=== PATIENT | male | born 1980 | race Caucasian/White ===

== ENCOUNTER 2018-09-10 15:46 | Inpatient (IN) | payer MEDICAID ==
[~2018-09-10] VITALS: Ht 182.9 cm; Wt 59.5 kg
[2018-09-10] MEDS ORDERED: CEFTRIAXONE 1 GM/50 ML (PMX) 50 ML IVPB STA (17:13)
[2018-09-10] MEDS ORDERED: PIPER-TAZO 3.375 GM IV (PMX) 100 ML IVPB STA (17:13)
[2018-09-10] MEDS ORDERED: SOD CHLORIDE 0.9% 1,000 ML IV STA (17:21)
[2018-09-10] MEDS ORDERED: KETOROLAC 15 MG INJ IV STA (17:21)
[2018-09-10] MEDS ORDERED: OXYCODONE/ACETAMINOPHEN (5/325) TAB PO ONE (17:30)
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
[2018-09-10] MEDS ORDERED: SOD CHLORIDE 0.9% 500 ML IV ONE (18:00)
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
[2018-09-10] MEDS ORDERED: NACL 0.9% 3 ML SYG IV SCH (18:30)
[2018-09-10] MEDS ORDERED: OXYCODONE/ACETAMINOPHEN (5/325) TAB PO PRN ×2 (18:30)
[2018-09-10] MEDS ORDERED: VANCOMYCIN IV PER PHARMACY XX SCH (18:30)
[2018-09-10] MEDS ORDERED: ACETAMINOPHEN 325 MG TAB PO PRN (18:30)
[2018-09-10] MEDS ORDERED: ONDANSETRON 4 MG INJ IV PRN (18:30)
[2018-09-10] MEDS ORDERED: traMADol 50 MG TAB PO PRN (19:00)
[2018-09-10] MEDS: morphine 2 MG INJ IV PRN (19:26)
[2018-09-10] MEDS ORDERED: VANCOMYCIN HCL 1.25 GM in SOD CHLORIDE 0.9% 250 ML IVPB ONE (21:00)
[2018-09-10] MEDS: oxyCODONE 15 MG TAB PO PRN (21:15)
[2018-09-10] MEDS ORDERED: OXYC30TA PO (22:37)
[2018-09-10 22:42] VITALS: Ht 182.9 cm; Wt 59.5 kg
[2018-09-10] MEDS ORDERED: COLLAGENASE 5 GM (UD JAR) TOP ONE (23:18)
[2018-09-10] MEDS ORDERED: PENDING SANTYL ORDER FOR WOUND CARE XX PRN (23:30)
[2018-09-11] MEDS: SOD CHLORIDE 0.9% 1,000 ML IV SCH ×4 (00:12→21:04)
[2018-09-11] MEDS: HEPARIN 5,000 UNIT/1 ML VIAL SC SCH ×3 (00:15→21:00)
[2018-09-11] MEDS: morphine 2 MG INJ IV PRN ×4 (00:20→19:03)
[2018-09-11 02:00] VITALS: BP 109/61; PULSE 87; RESP 18
[2018-09-11] MEDS: oxyCODONE 15 MG TAB PO PRN ×4 (03:21→22:55)
[2018-09-11] MEDS: PIPER-TAZO 3.375 GM IV (PMX) 100 ML IVPB SCH ×3 (05:32→21:04)
[2018-09-11] MEDS: VANCOMYCIN 1 GM in 250 ML IVPB SCH ×3 (06:56→21:55)
[2018-09-11 08:57] VITALS: BP 91/53; PULSE 82; RESP 18
[2018-09-11] MEDS: POTASSIUM CHLORIDE 20 MEQ POWDER FOR ORAL SOLN PO ONE ×2 (13:00→13:13)
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
[2018-09-11 14:39] VITALS: BP 100/57; PULSE 75; RESP 19
[2018-09-11] MEDS ORDERED: POTASSIUM CHLORIDE (SR) 20 MEQ TAB PO STA (14:39)
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
[2018-09-11 19:58] VITALS: BP 110/58; PULSE 69; RESP 18
[2018-09-11] MEDS ORDERED: COLLAGENASE 5 GM (UD JAR) TOP ONE (20:12)
[2018-09-12 01:45] VITALS: BP 97/53; PULSE 75; RESP 18
[2018-09-12 01:49] VITALS: BP 103/53; PULSE 68; RESP 18
[2018-09-12] MEDS: morphine 2 MG INJ IV PRN ×4 (01:57→19:47)
[2018-09-12] MEDS: PIPER-TAZO 3.375 GM IV (PMX) 100 ML IVPB SCH ×3 (05:57→22:18)
[2018-09-12] MEDS: oxyCODONE 15 MG TAB PO PRN ×3 (05:58→23:36)
[2018-09-12] MEDS: VANCOMYCIN 1 GM in 250 ML IVPB SCH ×3 (07:01→20:15)
[2018-09-12 07:58] VITALS: BP 97/55; PULSE 70; RESP 16
[2018-09-12] MEDS: HEPARIN 5,000 UNIT/1 ML VIAL SC SCH (09:13)
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
--- NOTE | 2018-09-12 14:12 | CONS ---
Assessment/Plan Assessment/Plan Hospital Course (Demo Recall) No acute events. Patient is sleeping in no distress no fevers overnight. WBC 7 no shift no bands. BUN 6 creatinine 0.53. Antimicrobials: Blood culture growing gram-positive cocci in clusters 1 set, urine culture grew E. coli, left buttock wound culture growing strep diphtheroids and gram-negative rods Antimicrobials: Patient is on Vanco Zosyn Physical examination: Well-developed middle-aged -[place] man in no distress. Head atraumatic normocephalic chest rise symmetrical breath sounds clear heart: S1-S2 abdomen soft bowel sounds present extremities wasted without cyanosis Assessment: 1. Bacteremia, possibly secondary to chronic wound, rule out contaminant 2. Urinary tract infection 3. Paraplegia 4. Neurogenic bladder 5. Chronic wounds Plan: Remains stable continue present care and antibiotics, await for final cultures, monitor for urinary retention Consultation Date/Type/Reason Admit Date/Time Sep 10, 2018 at 18:10 Initial Consult Date 09/12/18 Type of Consult id Requesting Provider: ROXANA BOX Date/Time of Note DATE: 09/12/18 TIME: 14:12 Exam/Review of Systems Exam Vitals Vital Signs Date Temp Pulse Resp B/P (MAP) Pulse Ox O2 O2 Flow FiO2 Time Delivery Rate 09/12/18 98.5 70 16 97/55 (69) 96 07:58 09/10/18 Room Air 21:55 Intake and Output 09/11/18 09/11/18 09/12/18 1515:00 23:00 07:00 IntakeIntake Total 1560 ml 1140 ml 1000 ml OutputOutput Total 200 ml 200 ml BalanceBalance 1360 ml 940 ml 1000 ml Results Result Diagram: 09/12/1858 09/12/18 0958 Results 24hrs Laboratory Tests Test 09/11/18 19:58 09/12/18 09:58 Vancomycin Level Trough 13.9 White Blood Count 7.0 # Red Blood Count 3.21 L Hemoglobin 8.5 L Hematocrit 28.3 L Mean Corpuscular Volume 88.2 Mean Corpuscular Hemoglobin 26.5 L Mean Corpuscular Hemoglobin Concent 30.0 L Red Cell Distribution Width 13.9 Platelet Count 368 Mean Platelet Volume 9.5 Immature Granulocytes % 0.300 Neutrophils % 73.4 Lymphocytes % 16.3 Monocytes % 6.8 Eosinophils % 2.9 Basophils % 0.3 Nucleated Red Blood Cells % 0.0 Immature Granulocytes # 0.020 Neutrophils # 5.2 Lymphocytes # 1.1 Monocytes # 0.5 Eosinophils # 0.2 Basophils # 0.0 Nucleated Red Blood Cells # 0.0 Sodium Level 141 Potassium Level 3.9 Chloride Level 111 H Carbon Dioxide Level 26 Anion Gap 4 L Blood Urea Nitrogen 6 L Creatinine 0.53 L Est Glomerular Filtrat Rate mL/min > 60 Glucose Level 139 Calcium Level 8.6 Phosphorus Level 2.9 Magnesium Level 1.9 Medications Medication Current Medications Vancomycin HCl (Vanco Iv Per Pharmacy) VANCOMYCIN PER PHARMACY PER PROTOCOL XX ; Start 09/10/18 at 18:30 Piperacillin Sod/ Tazobactam Sod 100 ml @ 200 mls/hr Q8 IVPB Last administered on 09/12/18 13:31; Admin Dose 200 MLS/HR; Start 09/11/18 at 06:00 IV Flush (NS 3 ml) 3 ml PER PROTOCOL IV ; Start 09/10/18 at 18:30 Ondansetron HCl (Zofran Inj) 4 mg Q6H PRN IV NAUSEA/VOMITING; Start 09/10/18 at 18:30 Acetaminophen (Tylenol Tab) 650 mg Q6H PRN PO .PAIN 1-3 OR TEMP; Start 09/10/18 at 18:30 Morphine Sulfate (morphine) 2 mg Q4H PRN IV .SEVERE PAIN 7-10 Last administered on 09/12/18 07:38; Admin Dose 2 MG; Start 09/10/18 at 18:30 Heparin Sodium (Porcine) (Heparin (5000 Units/1ml)) 5,000 unit Q12 SC Last administered on 09/12/18 09:13; Admin Dose 5,000 UNIT; Start 09/10/18 at 21:00; Status Hold Oxycodone HCl (Roxicodone) 30 mg Q6H PRN PO PAIN LEVEL 7-10 Last administered on 09/12/18 05:58; Admin Dose 30 MG; Start 09/10/18 at 19:00 Tramadol HCl (Ultram) 50 mg Q6H PRN PO MODERATE PAIN LEVEL 4-6; Start 09/10/18 at 19:00 Vancomycin HCl 250 ml @ 125 mls/hr Q8H IVPB Last administered on 09/12/18 13:31; Admin Dose 125 MLS/HR; Start 09/11/18 at 05:00 Miscellaneous Information (Pending [facility] Order For Wound Care) This patient carrion... PRN PRN XX WOUND CARE; Start 09/10/18 at 23:30 ROSENDO VELAZQUEZ NP Sep 12, 2018 14:12
[2018-09-12 14:42] VITALS: BP 105/59; PULSE 61; RESP 16
[2018-09-12 19:55] VITALS: BP 104/50; PULSE 61; RESP 17
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
[2018-09-13 02:13] VITALS: BP 112/58; PULSE 74; RESP 18
[2018-09-13] MEDS: morphine 2 MG INJ IV PRN ×4 (02:34→23:04)
[2018-09-13] MEDS: PIPER-TAZO 3.375 GM IV (PMX) 100 ML IVPB SCH ×3 (05:17→23:05)
[2018-09-13] MEDS: VANCOMYCIN 1 GM in 250 ML IVPB SCH ×3 (05:49→20:57)
[2018-09-13] MEDS: oxyCODONE 15 MG TAB PO PRN ×3 (05:51→21:09)
[2018-09-13 08:00] VITALS: BP 103/55; PULSE 68; RESP 18
[2018-09-13] MEDS: ASCORBIC ACID 500 MG TAB PO SCH ×2 (08:30→20:57)
[2018-09-13] MEDS: MULTIVITAMINS/MINERALS TAB PO SCH (08:30)
[2018-09-13] MEDS: ZINC SULFATE 220 MG CAP PO SCH (08:30)
[2018-09-13] MEDS ORDERED: BALSAM PERU/CASTOR OIL 60 GM TUBE TOP SCH ×2 (09:00→21:00)
[2018-09-13] MEDS ORDERED: COLLAGENASE 5 GM (UD JAR) TOP SCH (09:00)
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
[2018-09-13] MEDS: DOCUSATE SODIUM 100 MG CAP PO SCH ×2 (12:08→21:00)
[2018-09-13 14:00] VITALS: BP 101/58; PULSE 64; RESP 18
[2018-09-13] MEDS ORDERED: COLLAGENASE 5 GM (UD JAR) TOP ONE (15:30)
--- NOTE | 2018-09-13 16:23 | CONS ---
Assessment/Plan Assessment/Plan Hospital Course (Demo Recall) Alert feels good, denies pain, no fevers overnight. Antimicrobials: Blood culture growing gram-positive cocci in clusters 1 set, urine culture grew E. coli, left buttock wound culture growing strep diphtheroids and gram-negative rods Antimicrobials: Vanco Zosyn Physical examination: Well-developed middle-aged -[place] man in no distress. Head atraumatic normocephalic chest rise symmetrical breath sounds clear heart: S1-S2 abdomen soft bowel sounds present extremities wasted without cyanosis Assessment: 1. Bacteremia, possibly secondary to chronic wound, rule out contaminant 2. Urinary tract infection 3. Paraplegia 4. Neurogenic bladder 5. Chronic wounds, not infected Plan: Remains stable, continue present care and antibiotics, await for final cultures, bladder scan with straight cath prn, surgical recommendations noted, wounds are not infected Consultation Date/Type/Reason Admit Date/Time Sep 10, 2018 at 18:10 Initial Consult Date 09/12/18 Type of Consult id Requesting Provider: ROXANA BOX Date/Time of Note DATE: 09/13/18 TIME: 16:22 Exam/Review of Systems Exam Vitals Vital Signs Date Temp Pulse Resp B/P (MAP) Pulse Ox O2 O2 Flow FiO2 Time Delivery Rate 09/13/18 98.4 64 18 101/58 98 Room Air 14:00 (72) Intake and Output 09/12/18 09/12/18 09/13/18 1515:00 23:00 07:00 IntakeIntake Total 100 ml 1700 ml 620 ml OutputOutput Total 1200 ml 1175 ml BalanceBalance 100 ml 500 ml -555 ml Results Result Diagram: 09/13/18 0758 09/13/18 0758 Results 24hrs Laboratory Tests Test 09/13/18 07:58 White Blood Count 5.1 # Red Blood Count 3.19 L Hemoglobin 8.7 L Hematocrit 28.5 L Mean Corpuscular Volume 89.3 Mean Corpuscular Hemoglobin 27.3 L Mean Corpuscular Hemoglobin Concent 30.5 L Red Cell Distribution Width 14.1 Platelet Count 349 Mean Platelet Volume 9.5 Immature Granulocytes % 0.200 Neutrophils % 56.2 Lymphocytes % 30.7 Monocytes % 7.8 Eosinophils % 4.5 Basophils % 0.6 Nucleated Red Blood Cells % 0.0 Immature Granulocytes # 0.010 Neutrophils # 2.9 Lymphocytes # 1.6 Monocytes # 0.4 Eosinophils # 0.2 Basophils # 0.0 Nucleated Red Blood Cells # 0.0 Sodium Level 143 Potassium Level 4.1 Chloride Level 111 H Carbon Dioxide Level 28 Anion Gap 4 L Blood Urea Nitrogen 6 L Creatinine 0.51 L Est Glomerular Filtrat Rate mL/min > 60 Glucose Level 88 # Calcium Level 8.2 L Phosphorus Level 3.5 Magnesium Level 2.0 Medications Medication Current Medications Vancomycin HCl (Vanco Iv Per Pharmacy) VANCOMYCIN PER PHARMACY PER PROTOCOL XX ; Start 09/10/18 at 18:30 Piperacillin Sod/ Tazobactam Sod 100 ml @ 200 mls/hr Q8 IVPB Last administered on 09/13/18 14:47; Admin Dose 200 MLS/HR; Start 09/11/18 at 06:00 IV Flush (NS 3 ml) 3 ml PER PROTOCOL IV ; Start 09/10/18 at 18:30 Ondansetron HCl (Zofran Inj) 4 mg Q6H PRN IV NAUSEA/VOMITING; Start 09/10/18 at 18:30 Acetaminophen (Tylenol Tab) 650 mg Q6H PRN PO .PAIN 1-3 OR TEMP; Start 09/10/18 at 18:30 Morphine Sulfate (morphine) 2 mg Q4H PRN IV .SEVERE PAIN 7-10 Last administered on 09/13/18at 14:46; Admin Dose 2 MG; Start 09/10/18 at 18:30 Heparin Sodium (Porcine) (Heparin (5000 Units/1ml)) 5,000 unit Q12 SC Last administered on 09/12/18 09:13; Admin Dose 5,000 UNIT; Start 09/10/18 at 21:00; Status Hold Oxycodone HCl (Roxicodone) 30 mg Q6H PRN PO PAIN LEVEL 7-10 Last administered on 09/13/18 12:14; Admin Dose 30 MG; Start 09/10/18 at 19:00 Tramadol HCl (Ultram) 50 mg Q6H PRN PO MODERATE PAIN LEVEL 4-6; Start 09/10/18 at 19:00 Vancomycin HCl 250 ml @ 125 mls/hr Q8H IVPB Last administered on 09/13/18 12:09; Admin Dose 125 MLS/HR; Start 09/11/18 at 05:00 Miscellaneous Information (Pending Santyl Order For Wound Care) This patient carrion... PRN PRN XX WOUND CARE; Start 09/10/18 at 23:30 Multivitamins/ Minerals (Theragran-M) 1 tab DAILY PO Last administered on 09/13/18at 08:30; Admin Dose 1 TAB; Start 09/13/18 at 09:00 Ascorbic Acid (Vitamin C) 500 mg BID PO Last administered on 09/13/18at 08:30; Admin Dose 500 MG; Start 09/13/18 at 09:00; Stop 09/23/18 at 08:59 Zinc Sulfate (Zinc Sulfate) 220 mg DAILY PO Last administered on 09/13/18at 08:30; Admin Dose 220 MG; Start 09/13/18 at 09:00; Stop 09/23/18 at 08:59 Docusate Sodium (Colace) 100 mg BID PO Last administered on 09/13/18at 12:08; Admin Dose 100 MG; Start 09/13/18 at 10:00 Collagenase (Santyl) 1 applic DAILY TOP ; Start 09/13/18 at 16:00 ROSENDO VELAZQUEZ [employer] Sep 13, 2018 16:23
[2018-09-13] MEDS: COLLAGENASE 5 GM (UD JAR) TOP SCH (18:09)
[2018-09-13] MEDS: BALSAM PERU/CASTOR OIL 60 GM TUBE TOP SCH (18:09)
[2018-09-13 20:00] VITALS: BP 112/71; PULSE 69; RESP 18
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
[2018-09-14 02:00] VITALS: BP 99/57; PULSE 71; RESP 18
[2018-09-14] MEDS: oxyCODONE 15 MG TAB PO PRN ×3 (03:49→18:45)
[2018-09-14] MEDS: PIPER-TAZO 3.375 GM IV (PMX) 100 ML IVPB SCH ×3 (05:18→22:24)
[2018-09-14] MEDS: VANCOMYCIN 1 GM in 250 ML IVPB SCH ×2 (06:05→14:41)
[2018-09-14] MEDS: ZINC SULFATE 220 MG CAP PO SCH (12:31)
[2018-09-14] MEDS: MULTIVITAMINS/MINERALS TAB PO SCH (12:31)
[2018-09-14] MEDS: ASCORBIC ACID 500 MG TAB PO SCH ×2 (12:32→21:27)
[2018-09-14] MEDS: DOCUSATE SODIUM 100 MG CAP PO SCH ×2 (12:32→21:00)
[2018-09-14] MEDS: morphine 2 MG INJ IV PRN ×3 (14:02→23:51)
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
--- NOTE | 2018-09-14 14:56 | CONS ---
Assessment/Plan Assessment/Plan Hospital Course (Demo Recall) Alert feels good, no fevers overnight. Antimicrobials: Blood culture growing gram-positive cocci in clusters 1 set, urine culture grew E. coli, left buttock wound culture growing strep diphther oids and gram-negative rods Antimicrobials: Vanco Zosyn Physical examination: Well-developed middle-aged -[place] man in no distress. Head atraumatic normocephalic chest rise symmetrical breath sounds clear heart: S1-S2 abdomen soft bowel sounds present extremities wasted without cyanosis Assessment: 1. Bacteremia, consistent with contaminant 2. Urinary tract infection 3. Paraplegia 4. Neurogenic bladder 5. Chronic wounds, not infected Plan: Remains stable, okay to discharge home on oral antibiotics for 7 more days to complete treatment for UTI Consultation Date/Type/Reason Admit Date/Time Sep 10, 2018 at 18:10 Initial Consult Date 09/12/18 Type of Consult id Requesting Provider: ROXANA BOX Date/Time of Note DATE: 09/14/18 TIME: 14:54 Exam/Review of Systems Exam Vitals Vital Signs Date Temp Pulse Resp B/P (MAP) Pulse Ox O2 O2 Flow FiO2 Time Delivery Rate 09/14/18 98.7 71 18 99/57 (71) 97 02:00 09/13/18 Room Air 14:00 Intake and Output 09/13/18 09/13/18 09/14/18 1515:00 23:00 07:00 IntakeIntake Total 1380 ml 750 ml 200 ml OutputOutput Total 680 ml 250 ml 725 ml BalanceBalance 700 ml 500 ml -525 ml Results Result Diagram: 09/14/18 1227 09/14/18 1227 Results 24hrs Laboratory Tests Test 09/14/18 12:27 White Blood Count 6.1 Red Blood Count 3.32 L Hemoglobin 9.1 L Hematocrit 29.6 L Mean Corpuscular Volume 89.2 Mean Corpuscular Hemoglobin 27.4 L Mean Corpuscular Hemoglobin Concent 30.7 L Red Cell Distribution Width 14.0 Platelet Count 353 Mean Platelet Volume 9.7 Immature Granulocytes % 0.300 Neutrophils % 68.1 Lymphocytes % 19.1 Monocytes % 7.4 Eosinophils % 4.6 Basophils % 0.5 Nucleated Red Blood Cells % 0.0 Immature Granulocytes # 0.020 Neutrophils # 4.2 Lymphocytes # 1.2 Monocytes # 0.5 Eosinophils # 0.3 Basophils # 0.0 Nucleated Red Blood Cells # 0.0 Sodium Level 142 Potassium Level 4.2 Chloride Level 110 Carbon Dioxide Level 25 Anion Gap 7 Blood Urea Nitrogen 8 Creatinine 0.53 L Est Glomerular Filtrat Rate mL/min > 60 Glucose Level 145 # Calcium Level 8.9 Phosphorus Level 3.2 Magnesium Level 2.0 Vancomycin Level Trough 19.4 Medications Medication Current Medications Vancomycin HCl (Vanco Iv Per Pharmacy) VANCOMYCIN PER PHARMACY PER PROTOCOL XX ; Start 09/10/18 at 18:30 Piperacillin Sod/ Tazobactam Sod 100 ml @ 200 mls/hr Q8 IVPB Last administered on 09/14/18at 13:57; Admin Dose 200 MLS/HR; Start 09/11/18 at 06:00 IV Flush (NS 3 ml) 3 ml PER PROTOCOL IV ; Start 09/10/18 at 18:30 Ondansetron HCl (Zofran Inj) 4 mg Q6H PRN IV NAUSEA/VOMITING; Start 09/10/18 at 18:30 Acetaminophen (Tylenol Tab) 650 mg Q6H PRN PO .PAIN 1-3 OR TEMP; Start 09/10/18 at 18:30 Morphine Sulfate (morphine) 2 mg Q4H PRN IV .SEVERE PAIN 7-10 Last administered on 09/14/18at 14:02; Admin Dose 2 MG; Start 09/10/18 at 18:30 Heparin Sodium (Porcine) (Heparin (5000 Units/1ml)) 5,000 unit Q12 SC Last administered on 09/12/18at 09:13; Admin Dose 5,000 UNIT; Start 09/10/18 at 21:00; Status Hold Oxycodone HCl (Roxicodone) 30 mg Q6H PRN PO PAIN LEVEL 7-10 Last administered on 09/14/18at 12:38; Admin Dose 30 MG; Start 09/10/18 at 19:00 Tramadol HCl (Ultram) 50 mg Q6H PRN PO MODERATE PAIN LEVEL 4-6; Start 09/10/18 at 19:00 Vancomycin HCl 250 ml @ 125 mls/hr Q8H IVPB Last administered on 09/14/18at 14:41; Admin Dose 125 MLS/HR; Start 09/11/18 at 05:00; Stop 09/14/18 at 18:00 Miscellaneous Information (Pending Santyl Order For Wound Care) This patient carrion... PRN PRN XX WOUND CARE; Start 09/10/18 at 23:30 Multivitamins/ Minerals (Theragran-M) 1 tab DAILY PO Last administered on 09/14/18 12:31; Admin Dose 1 TAB; Start 09/13/18 at 09:00 Ascorbic Acid (Vitamin C) 500 mg BID PO Last administered on 09/14/18 12:32; Admin Dose 500 MG; Start 09/13/18 at 09:00; Stop 09/23/18 at 08:59 Zinc Sulfate (Zinc Sulfate) 220 mg DAILY PO Last administered on 09/14/18 12:31; Admin Dose 220 MG; Start 09/13/18 at 09:00; Stop 09/23/18 at 08:59 Docusate Sodium (Colace) 100 mg BID PO Last administered on 09/13/18at 12:08; Admin Dose 100 MG; Start 09/13/18 at 10:00 Collagenase (Santyl) 1 applic DAILY TOP Last administered on 09/13/18at 18:09; Admin Dose 1 APPLIC; Start 09/13/18 at 16:00 Vancomycin HCl 250 ml @ 125 mls/hr Q12H IVPB ; Start 09/15/18 at 02:00 ROSENDO VELAZQUEZ NP Sep 14, 2018 14:56
[2018-09-14] MEDS: BALSAM PERU/CASTOR OIL 60 GM TUBE TOP SCH ×2 (15:31→21:30)
[2018-09-14] MEDS: COLLAGENASE 5 GM (UD JAR) TOP SCH (15:31)
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
[2018-09-14 20:00] VITALS: BP 120/60; PULSE 68; RESP 17
[2018-09-15] MEDS: oxyCODONE 15 MG TAB PO PRN ×4 (01:13→20:40)
[2018-09-15 02:00] VITALS: BP 107/59; PULSE 72; RESP 18
[2018-09-15] MEDS ORDERED: VANCOMYCIN 1 GM 250 ML IVPB SCH (02:00)
[2018-09-15] MEDS: morphine 2 MG INJ IV PRN ×4 (04:30→22:19)
[2018-09-15] MEDS: PIPER-TAZO 3.375 GM IV (PMX) 100 ML IVPB SCH (06:06)
[2018-09-15 07:55] VITALS: BP 110/66; PULSE 69; RESP 16
[2018-09-15] MEDS: DOCUSATE SODIUM 100 MG CAP PO SCH ×2 (08:40→21:00)
[2018-09-15] MEDS: ZINC SULFATE 220 MG CAP PO SCH (08:40)
[2018-09-15] MEDS: MULTIVITAMINS/MINERALS TAB PO SCH (08:40)
[2018-09-15] MEDS: ASCORBIC ACID 500 MG TAB PO SCH ×2 (08:40→20:39)
[2018-09-15] MEDS: BALSAM PERU/CASTOR OIL 60 GM TUBE TOP SCH ×2 (08:41→20:39)
[2018-09-15] MEDS: COLLAGENASE 5 GM (UD JAR) TOP SCH (08:41)
[2018-09-15] MEDS: LEVOFLOXACIN 500 MG TAB PO SCH (10:09)
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
[2018-09-15 14:00] VITALS: BP 117/61; PULSE 71; RESP 18
--- NOTE | 2018-09-15 14:43 | CONS ---
Assessment/Plan Assessment/Plan Hospital Course (Demo Recall) All noted, no acute events, no fevers Antimicrobials: Blood culture growing gram-positive cocci in clusters 1 set, urine culture grew E. coli, left buttock wound culture growing strep diphthero ids and gram-negative rods Antimicrobials: Levaquin Physical examination: Well-developed middle-aged -[place] man in no distress. Head atraumatic normocephalic chest rise symmetrical breath sounds clear heart: S1-S2 abdomen soft bowel sounds present extremities wasted without cyanosis Assessment: 1. Bacteremia, consistent with contaminant 2. Urinary tract infection 3. Paraplegia 4. Neurogenic bladder 5. 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 Plan: Remains stable, pending discharge on oral antibiotics for 5 more days to complete treatment for UTI Consultation Date/Type/Reason Admit Date/Time Sep 10, 2018 at 18:10 Initial Consult Date 09/12/18 Type of Consult id Requesting Provider: ROXANA BOX Date/Time of Note DATE: 09/15/18 TIME: 14:41 Exam/Review of Systems Exam Vitals Vital Signs Date Temp Pulse Resp B/P (MAP) Pulse Ox O2 O2 Flow FiO2 Time Delivery Rate 09/15/18 98.4 71 18 117/61 97 Room Air 14:00 (79) Intake and Output 09/14/18 09/14/18 09/15/18 1515:00 23:00 07:00 IntakeIntake Total 1550 ml 500 ml 650 ml OutputOutput Total 850 ml 500 ml 400 ml BalanceBalance 700 ml 0 ml 250 ml Results Result Diagram: 09/15/18 0850 09/15/18 0850 Results 24hrs Laboratory Tests Test 09/15/18 08:50 White Blood Count 8.3 # Red Blood Count 3.15 L Hemoglobin 8.8 L Hematocrit 28.3 L Mean Corpuscular Volume 89.8 Mean Corpuscular Hemoglobin 27.9 L Mean Corpuscular Hemoglobin Concent 31.1 L Red Cell Distribution Width 13.9 Platelet Count 369 Mean Platelet Volume 9.5 Immature Granulocytes % 0.200 Neutrophils % 53.6 Lymphocytes % 34.0 Monocytes % 7.1 Eosinophils % 4.6 Basophils % 0.5 Nucleated Red Blood Cells % 0.0 Immature Granulocytes # 0.020 Neutrophils # 4.5 Lymphocytes # 2.8 Monocytes # 0.6 Eosinophils # 0.4 Basophils # 0.0 Nucleated Red Blood Cells # 0.0 Sodium Level 143 Potassium Level 3.9 Chloride Level 104 Carbon Dioxide Level 33 H Anion Gap 6 Blood Urea Nitrogen 6 L Creatinine 0.58 L Est Glomerular Filtrat Rate mL/min > 60 Glucose Level 84 # Calcium Level 8.6 Phosphorus Level 3.8 Magnesium Level 2.1 Medications Medication Current Medications IV Flush (NS 3 ml) 3 ml PER PROTOCOL IV ; Start 09/10/18 at 18:30 Ondansetron HCl (Zofran Inj) 4 mg Q6H PRN IV NAUSEA/VOMITING; Start 09/10/18 at 18:30 Acetaminophen (Tylenol Tab) 650 mg Q6H PRN PO .PAIN 1-3 OR TEMP; Start 09/10/18 at 18:30 Morphine Sulfate (morphine) 2 mg Q4H PRN IV .SEVERE PAIN 7-10 Last administered on 09/15/18 10:10; Admin Dose 2 MG; Start 09/10/18 at 18:30 Heparin Sodium (Porcine) (Heparin (5000 Units/1ml)) 5,000 unit Q12 SC Last administered on 09/12/18 09:13; Admin Dose 5,000 UNIT; Start 09/10/18 at 21:00; Status Hold Oxycodone HCl (Roxicodone) 30 mg Q6H PRN PO PAIN LEVEL 7-10 Last administered on 09/15/18 08:41; Admin Dose 30 MG; Start 09/10/18 at 19:00 Tramadol HCl (Ultram) 50 mg Q6H PRN PO MODERATE PAIN LEVEL 4-6; Start 09/10/18 at 19:00 Miscellaneous Information (Pending Santyl Order For Wound Care) This patient carrion... PRN PRN XX WOUND CARE; Start 09/10/18 at 23:30 Multivitamins/ Minerals (Theragran-M) 1 tab DAILY PO Last administered on 09/15/18 08:40; Admin Dose 1 TAB; Start 09/13/18 at 09:00 Ascorbic Acid (Vitamin C) 500 mg BID PO Last administered on 09/15/18 08:40; Admin Dose 500 MG; Start 09/13/18 at 09:00; Stop 09/23/18 at 08:59 Zinc Sulfate (Zinc Sulfate) 220 mg DAILY PO Last administered on 09/15/18 08:40; Admin Dose 220 MG; Start 09/13/18 at 09:00; Stop 09/23/18 at 08:59 Docusate Sodium (Colace) 100 mg BID PO Last administered on 09/15/18at 08:40; Admin Dose 100 MG; Start 09/13/18 at 10:00 Collagenase (Santyl) 1 applic DAILY TOP Last administered on 09/15/18at 08:41; Admin Dose 1 APPLIC; Start 09/13/18 at 16:00 Levofloxacin (Levaquin) 500 mg DAILY@06 PO Last administered on 09/15/18at 10:09; Admin Dose 500 MG; Start 09/15/18 at 09:30 ROSENDO VELAZQUEZ NP Sep 15, 2018 14:43
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
[2018-09-15 19:53] VITALS: BP 122/77; PULSE 56; RESP 20
[2018-09-16] MEDS: morphine 2 MG INJ IV PRN ×4 (02:21→21:19)
[2018-09-16 02:25] VITALS: BP 110/58; PULSE 70; RESP 18
[2018-09-16] MEDS: LEVOFLOXACIN 500 MG TAB PO SCH (06:01)
[2018-09-16] MEDS: oxyCODONE 15 MG TAB PO PRN ×3 (07:02→23:02)
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
[2018-09-16] MEDS: DOCUSATE SODIUM 100 MG CAP PO SCH ×4 (13:56→21:00)
[2018-09-16] MEDS: MULTIVITAMINS/MINERALS TAB PO SCH ×2 (13:57→14:54)
[2018-09-16] MEDS: ZINC SULFATE 220 MG CAP PO SCH ×2 (13:57→14:54)
[2018-09-16] MEDS: ASCORBIC ACID 500 MG TAB PO SCH ×3 (13:57→21:19)
[2018-09-16] MEDS: BALSAM PERU/CASTOR OIL 60 GM TUBE TOP SCH ×3 (14:49→21:25)
[2018-09-16] MEDS: COLLAGENASE 5 GM (UD JAR) TOP SCH ×2 (14:49→14:55)
[2018-09-16 21:26] VITALS: BP 122/63; PULSE 62; RESP 18
[2018-09-17] MEDS: morphine 2 MG INJ IV PRN ×5 (01:13→21:15)
[2018-09-17 02:00] VITALS: BP 120/60; PULSE 55; RESP 18
[2018-09-17] MEDS: LEVOFLOXACIN 500 MG TAB PO SCH (05:31)
[2018-09-17] MEDS: oxyCODONE 15 MG TAB PO PRN ×3 (06:36→22:35)
[2018-09-17 08:17] VITALS: BP 132/67; PULSE 80; RESP 18
[2018-09-17] MEDS: BALSAM PERU/CASTOR OIL 60 GM TUBE TOP SCH ×2 (09:00→21:15)
[2018-09-17] MEDS: COLLAGENASE 5 GM (UD JAR) TOP SCH (09:00)
[2018-09-17] MEDS: ASCORBIC ACID 500 MG TAB PO SCH ×2 (09:21→21:15)
[2018-09-17] MEDS: ZINC SULFATE 220 MG CAP PO SCH (09:21)
[2018-09-17] MEDS: MULTIVITAMINS/MINERALS TAB PO SCH (09:21)
[2018-09-17] MEDS: DOCUSATE SODIUM 100 MG CAP PO SCH ×2 (09:21→21:15)
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
[2018-09-17 20:00] VITALS: BP 100/59; PULSE 57; RESP 19
[2018-09-18] MEDS: morphine 2 MG INJ IV PRN ×6 (01:14→23:51)
[2018-09-18 02:00] VITALS: BP 102/51; PULSE 52; RESP 19
[2018-09-18] MEDS: LEVOFLOXACIN 500 MG TAB PO SCH (06:08)
[2018-09-18 08:00] VITALS: BP 94/53; PULSE 62; RESP 18
[2018-09-18] MEDS: oxyCODONE 15 MG TAB PO PRN ×3 (08:09→20:50)
[2018-09-18] MEDS: ASCORBIC ACID 500 MG TAB PO SCH ×2 (08:11→20:50)
[2018-09-18] MEDS: ZINC SULFATE 220 MG CAP PO SCH (08:11)
[2018-09-18] MEDS: MULTIVITAMINS/MINERALS TAB PO SCH (08:11)
[2018-09-18] MEDS: COLLAGENASE 5 GM (UD JAR) TOP SCH (08:11)
[2018-09-18] MEDS: DOCUSATE SODIUM 100 MG CAP PO SCH ×2 (08:11→21:00)
[2018-09-18] MEDS: BALSAM PERU/CASTOR OIL 60 GM TUBE TOP SCH ×2 (08:13→21:01)
--- NOTE | 2018-09-18 13:54 | CONS ---
Assessment/Plan Assessment/Plan Hospital Course (Demo Recall) All noted, no acute events looks comfortable Antimicrobials: Blood culture growing gram-positive cocci in clusters 1 set, urine culture grew E. coli, left buttock wound culture growing strep di phtheroids and gram-negative rods Antimicrobials: Levaquin Physical examination: Well-developed middle-aged -[place] man in no distress. Head atraumatic normocephalic chest rise symmetrical breath sounds clear heart: S1-S2 abdomen soft bowel sounds present extremities wasted without cyanosis Assessment: 1. Bacteremia, consistent with contaminant 2. Urinary tract infection 3. Paraplegia 4. Neurogenic bladder 5. 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 Plan: Remains stable, pending discharge on oral antibiotics for 3 more days to complete treatment for UTI Consultation Date/Type/Reason Admit Date/Time Sep 10, 2018 at 18:10 Initial Consult Date 09/12/18 Type of Consult id Requesting Provider: ROXANA BOX Date/Time of Note DATE: 09/18/18 TIME: 13:53 Exam/Review of Systems Exam Vitals Vital Signs Date Temp Pulse Resp B/P (MAP) Pulse Ox O2 O2 Flow FiO2 Time Delivery Rate 09/18/18 97.8 62 18 94/53 (67) 98 Room Air 08:00 Intake and Output 09/17/18 09/17/18 09/18/18 1515:00 23:00 07:00 IntakeIntake Total 340 ml 860 ml 420 ml OutputOutput Total 750 ml 1050 ml BalanceBalance 340 ml 110 ml -630 ml Results Result Diagram: 09/17/18 0551 09/17/18 0551 Medications Medication Current Medications IV Flush (NS 3 ml) 3 ml PER PROTOCOL IV ; Start 09/10/18 at 18:30 Ondansetron HCl (Zofran Inj) 4 mg Q6H PRN IV NAUSEA/VOMITING; Start 09/10/18 at 18:30 Acetaminophen (Tylenol Tab) 650 mg Q6H PRN PO .PAIN 1-3 OR TEMP; Start 09/10/18 at 18:30 Morphine Sulfate (morphine) 2 mg Q4H PRN IV .SEVERE PAIN 7-10 Last administered on 09/18/18at 10:26; Admin Dose 2 MG; Start 09/10/18 at 18:30 Heparin Sodium (Porcine) (Heparin (5000 Units/1ml)) 5,000 unit Q12 SC Last administered on 09/12/18 09:13; Admin Dose 5,000 UNIT; Start 09/10/18 at 21:00; Status Hold Oxycodone HCl (Roxicodone) 30 mg Q6H PRN PO PAIN LEVEL 7-10 Last administered on 09/18/18 08:09; Admin Dose 30 MG; Start 09/10/18 at 19:00 Tramadol HCl (Ultram) 50 mg Q6H PRN PO MODERATE PAIN LEVEL 4-6; Start 09/10/18 at 19:00 Miscellaneous Information (Pending Santyl Order For Wound Care) This patient carrion... PRN PRN XX WOUND CARE; Start 09/10/18 at 23:30 Multivitamins/ Minerals (Theragran-M) 1 tab DAILY PO Last administered on 09/18/18 08:11; Admin Dose 1 TAB; Start 09/13/18 at 09:00 Ascorbic Acid (Vitamin C) 500 mg BID PO Last administered on 09/18/18 08:11; Admin Dose 500 MG; Start 09/13/18 at 09:00; Stop 09/23/18 at 08:59 Zinc Sulfate (Zinc Sulfate) 220 mg DAILY PO Last administered on 09/18/18 08:11; Admin Dose 220 MG; Start 09/13/18 at 09:00; Stop 09/23/18 at 08:59 Docusate Sodium (Colace) 100 mg BID PO Last administered on 09/17/18 21:15; Admin Dose 100 MG; Start 09/13/18 at 10:00 Collagenase (Santyl) 1 applic DAILY TOP Last administered on 09/18/18 08:11; Admin Dose 1 APPLIC; Start 09/13/18 at 16:00 Levofloxacin (Levaquin) 500 mg DAILY@06 PO Last administered on 09/18/18 06:08; Admin Dose 500 MG; Start 09/15/18 at 09:30 ROSENDO VELAZQUEZ NP Sep 18, 2018 13:54
[2018-09-18 14:20] VITALS: BP 124/64; PULSE 65; RESP 18
--- NOTE | 2018-09-18 15:47 | PN ---
Date/Time of Note Date/Time of Note DATE: 09/18/18 TIME: 15:42 Assessment/Plan VTE Prophylaxis Risk score (from Ns)>0 risk: 4 SCD applied (from Ns): Yes Pharmacological prophylaxis: NA/contraindicated Pharm contraindication: bleeding Lines/Catheters IV Catheter Type (from Nrsg): Saline Lock Urinary Cath still in place: No Assessment/Plan Assessment/Plan 1. UTI, resolving - ID on board and appreciate recommendations. Will need to continue on 3 more days of PO antibiotics - Urine culture showing E. coli 2. Hematuria, resolved 3. Bladder trabeculation - Urology consultation appreciated - urine cytology negative for malignancy 4. ?acute on Chronic vs chronic sacral pressure ulcer, history of osteomyelitis - has been present for 1 year - General surgery input appreciated and will continue local wound care - CM consulted to assist with arranging outpatient wound care 5. Chronic pain/neuropathy - will continue home Oxycodone 30mg q6h 6. Homelessness - consulted and plans to airbnb 7. Disposition - Will touch base with CM regarding wound care arrangements and if able to get patient supplies. If no acute issues and arrangements finalized, will d/c home tomorrow Result Diagram: 09/18/18 1418 09/18/18 1418 Results 24hrs Laboratory Tests Test 09/18/18 14:18 White Blood Count 6.6 # Red Blood Count 4.03 L Hemoglobin 10.8 L Hematocrit 36.1 L Mean Corpuscular Volume 89.6 Mean Corpuscular Hemoglobin 26.8 L Mean Corpuscular Hemoglobin Concent 29.9 L Red Cell Distribution Width 14.5 Platelet Count 466 H Mean Platelet Volume 9.5 Immature Granulocytes % 0.500 H Neutrophils % 49.4 Lymphocytes % 36.8 Monocytes % 7.3 Eosinophils % 5.2 Basophils % 0.8 Nucleated Red Blood Cells % 0.0 Immature Granulocytes # 0.030 Neutrophils # 3.2 Lymphocytes # 2.4 Monocytes # 0.5 Eosinophils # 0.3 Basophils # 0.1 Nucleated Red Blood Cells # 0.0 Sodium Level 142 Potassium Level 4.4 Chloride Level 103 Carbon Dioxide Level 31 Anion Gap 8 Blood Urea Nitrogen 15 Creatinine 0.66 Est Glomerular Filtrat Rate mL/min > 60 Glucose Level 88 Calcium Level 9.5 Phosphorus Level 4.2 Magnesium Level 2.1 Subjective 24 Hr Interval Summary Free Text/Dictation Patient denies any acute issues and still with pain but controlled. No acute overnight events. Exam/Review of Systems Exam Vitals Vital Signs Date Temp Pulse Resp B/P (MAP) Pulse Ox O2 O2 Flow FiO2 Time Delivery Rate 09/18/18 97.8 62 18 94/53 (67) 98 Room Air 08:00 Intake and Output 09/17/18 09/17/18 09/18/18 1515:00 23:00 07:00 IntakeIntake Total 340 ml 860 ml 420 ml OutputOutput Total 750 ml 1050 ml BalanceBalance 340 ml 110 ml -630 ml Exam General: Patient is laying in bed and answers questions appropriately Respiratory: Clear to auscultation bilaterally. no wheezing or rhonchi Cardiovascular: regular rate and rhythm, no obvious murmurs Gastrointestinal: soft, non-tender to palpation, bowel sounds heard. Neurological: Moves upper extremities spontaneously, lower extremity movement is somewhat limited, Skin: No new skin lesions sacral decubitus ulcers present, gluteal ulcers present Results Results 24hrs Laboratory Tests Test 09/18/18 14:18 White Blood Count 6.6 # Red Blood Count 4.03 L Hemoglobin 10.8 L Hematocrit 36.1 L Mean Corpuscular Volume 89.6 Mean Corpuscular Hemoglobin 26.8 L Mean Corpuscular Hemoglobin Concent 29.9 L Red Cell Distribution Width 14.5 Platelet Count 466 H Mean Platelet Volume 9.5 Immature Granulocytes % 0.500 H Neutrophils % 49.4 Lymphocytes % 36.8 Monocytes % 7.3 Eosinophils % 5.2 Basophils % 0.8 Nucleated Red Blood Cells % 0.0 Immature Granulocytes # 0.030 Neutrophils # 3.2 Lymphocytes # 2.4 Monocytes # 0.5 Eosinophils # 0.3 Basophils # 0.1 Nucleated Red Blood Cells # 0.0 Sodium Level 142 Potassium Level 4.4 Chloride Level 103 Carbon Dioxide Level 31 Anion Gap 8 Blood Urea Nitrogen 15 Creatinine 0.66 Est Glomerular Filtrat Rate mL/min > 60 Glucose Level 88 Calcium Level 9.5 Phosphorus Level 4.2 Magnesium Level 2.1 Medications Medication Current Medications IV Flush (NS 3 ml) 3 ml PER PROTOCOL IV ; Start 09/10/18 at 18:30 Ondansetron HCl (Zofran Inj) 4 mg Q6H PRN IV NAUSEA/VOMITING; Start 09/10/18 at 18:30 Acetaminophen (Tylenol Tab) 650 mg Q6H PRN PO .PAIN 1-3 OR TEMP; Start 09/10/18 at 18:30 Morphine Sulfate (morphine) 2 mg Q4H PRN IV .SEVERE PAIN 7-10 Last administered on 09/18/18 15:33; Admin Dose 2 MG; Start 09/10/18 at 18:30 Heparin Sodium (Porcine) (Heparin (5000 Units/1ml)) 5,000 unit Q12 SC Last administered on 09/12/18 09:13; Admin Dose 5,000 UNIT; Start 09/10/18 at 21:00; Status Hold Oxycodone HCl (Roxicodone) 30 mg Q6H PRN PO PAIN LEVEL 7-10 Last administered on 09/18/18 14:30; Admin Dose 30 MG; Start 09/10/18 at 19:00 Tramadol HCl (Ultram) 50 mg Q6H PRN PO MODERATE PAIN LEVEL 4-6; Start 09/10/18 at 19:00 Miscellaneous Information (Pending Santyl Order For Wound Care) This patient carrion... PRN PRN XX WOUND CARE; Start 09/10/18 at 23:30 Multivitamins/ Minerals (Theragran-M) 1 tab DAILY PO Last administered on 09/18/18 08:11; Admin Dose 1 TAB; Start 09/13/18 at 09:00 Ascorbic Acid (Vitamin C) 500 mg BID PO Last administered on 09/18/18 08:11; Admin Dose 500 MG; Start 09/13/18 at 09:00; Stop 09/23/18 at 08:59 Zinc Sulfate (Zinc Sulfate) 220 mg DAILY PO Last administered on 09/18/18 08:11; Admin Dose 220 MG; Start 09/13/18 at 09:00; Stop 09/23/18 at 08:59 Docusate Sodium (Colace) 100 mg BID PO Last administered on 09/17/18 21:15; Admin Dose 100 MG; Start 09/13/18 at 10:00 Collagenase (Santyl) 1 applic DAILY TOP Last administered on 09/18/18 08:11; Admin Dose 1 APPLIC; Start 09/13/18 at 16:00 Levofloxacin (Levaquin) 500 mg DAILY@06 PO Last administered on 09/18/18 06 :08; Admin Dose 500 MG; Start 09/15/18 at 09:30 EVAN HERNÁNDEZ MD Sep 18, 2018 15:47
[2018-09-18 20:25] VITALS: BP 131/72; PULSE 74; RESP 20
[2018-09-19 02:00] VITALS: BP 98/56; PULSE 59; RESP 19
[2018-09-19] MEDS: oxyCODONE 15 MG TAB PO PRN ×2 (03:07→09:14)
[2018-09-19] MEDS: LEVOFLOXACIN 500 MG TAB PO SCH (05:22)
[2018-09-19] MEDS: morphine 2 MG INJ IV PRN ×2 (05:23→10:46)
[2018-09-19] MEDS: DOCUSATE SODIUM 100 MG CAP PO SCH (09:00)
[2018-09-19] MEDS: MULTIVITAMINS/MINERALS TAB PO SCH (09:13)
[2018-09-19] MEDS: COLLAGENASE 5 GM (UD JAR) TOP SCH (09:13)
[2018-09-19] MEDS: ASCORBIC ACID 500 MG TAB PO SCH (09:13)
[2018-09-19] MEDS: ZINC SULFATE 220 MG CAP PO SCH (09:13)
[2018-09-19] MEDS: BALSAM PERU/CASTOR OIL 60 GM TUBE TOP SCH (09:14)
--- NOTE | 2018-09-19 11:41 | PN ---
Date/Time of Note Date/Time of Note DATE: 09/19/18 TIME: 11:39 Assessment/Plan VTE Prophylaxis Risk score (from Ns)>0 risk: 4 SCD applied (from Ns): Yes Pharmacological prophylaxis: NA/contraindicated Pharm contraindication: bleeding Lines/Catheters IV Catheter Type (from Nrs): Saline Lock Urinary Cath still in place: No Assessment/Plan Assessment/Plan 1. UTI, resolving - ID on board and appreciate recommendations. Will need to continue on 2 more days of PO antibiotics - Urine culture showing E. coli 2. Hematuria, resolved 3. Bladder trabeculation - Urology consultation appreciated - urine cytology negative for malignancy 4. ?acute on Chronic vs chronic sacral pressure ulcer, history of osteomyelitis - has been present for 1 year - General surgery input appreciated and will continue local wound care - CM consulted to assist with arranging outpatient wound care 5. Chronic pain/neuropathy - will continue home Oxycodone 30mg q6h 6. Homelessness - consulted and plans to air bnb 7. Disposition - Medically stable for discharge home Result Diagram: 09/18/18 1418 09/18/18 1418 Results 24hrs Laboratory Tests Test 09/18/18 14:18 White Blood Count 6.6 # Red Blood Count 4.03 L Hemoglobin 10.8 L Hematocrit 36.1 L Mean Corpuscular Volume 89.6 Mean Corpuscular Hemoglobin 26.8 L Mean Corpuscular Hemoglobin Concent 29.9 L Red Cell Distribution Width 14.5 Platelet Count 466 H Mean Platelet Volume 9.5 Immature Granulocytes % 0.500 H Neutrophils % 49.4 Lymphocytes % 36.8 Monocytes % 7.3 Eosinophils % 5.2 Basophils % 0.8 Nucleated Red Blood Cells % 0.0 Immature Granulocytes # 0.030 Neutrophils # 3.2 Lymphocytes # 2.4 Monocytes # 0.5 Eosinophils # 0.3 Basophils # 0.1 Nucleated Red Blood Cells # 0.0 Sodium Level 142 Potassium Level 4.4 Chloride Level 103 Carbon Dioxide Level 31 Anion Gap 8 Blood Urea Nitrogen 15 Creatinine 0.66 Est Glomerular Filtrat Rate mL/min > 60 Glucose Level 88 Calcium Level 9.5 Phosphorus Level 4.2 Magnesium Level 2.1 Subjective 24 Hr Interval Summary Free Text/Dictation Patient is doing well and ready to go home. No acute overnight events. Exam/Review of Systems Exam Vitals Vital Signs Date Temp Pulse Resp B/P (MAP) Pulse Ox O2 O2 Flow FiO2 Time Delivery Rate 09/19/18 98.5 59 19 98/56 (70) 98 02:00 09/18/18 Room Air 14:20 Intake and Output 09/18/18 09/18/18 09/19/18 1515:00 23:00 07:00 IntakeIntake Total 600 ml 700 ml OutputOutput Total 800 ml 800 ml BalanceBalance -200 ml -100 ml Exam General: Patient is laying in bed and answers questions appropriately Respiratory: Clear to auscultation bilaterally. no wheezing or rhonchi Cardiovascular: regular rate and rhythm, no obvious murmurs Gastrointestinal: soft, non-tender to palpation, bowel sounds heard. Neurological: Moves upper extremities spontaneously, lower extremity movement is somewhat limited, Skin: No new skin lesions sacral decubitus ulcers present, gluteal ulcers present Results Results 24hrs Laboratory Tests Test 09/18/18 14:18 White Blood Count 6.6 # Red Blood Count 4.03 L Hemoglobin 10.8 L Hematocrit 36.1 L Mean Corpuscular Volume 89.6 Mean Corpuscular Hemoglobin 26.8 L Mean Corpuscular Hemoglobin Concent 29.9 L Red Cell Distribution Width 14.5 Platelet Count 466 H Mean Platelet Volume 9.5 Immature Granulocytes % 0.500 H Neutrophils % 49.4 Lymphocytes % 36.8 Monocytes % 7.3 Eosinophils % 5.2 Basophils % 0.8 Nucleated Red Blood Cells % 0.0 Immature Granulocytes # 0.030 Neutrophils # 3.2 Lymphocytes # 2.4 Monocytes # 0.5 Eosinophils # 0.3 Basophils # 0.1 Nucleated Red Blood Cells # 0.0 Sodium Level 142 Potassium Level 4.4 Chloride Level 103 Carbon Dioxide Level 31 Anion Gap 8 Blood Urea Nitrogen 15 Creatinine 0.66 Est Glomerular Filtrat Rate mL/min > 60 Glucose Level 88 Calcium Level 9.5 Phosphorus Level 4.2 Magnesium Level 2.1 Medications Medication Current Medications IV Flush (NS 3 ml) 3 ml PER PROTOCOL IV ; Start 09/10/18 at 18:30 Ondansetron HCl (Zofran Inj) 4 mg Q6H PRN IV NAUSEA/VOMITING; Start 09/10/18 at 18:30 Acetaminophen (Tylenol Tab) 650 mg Q6H PRN PO .PAIN 1-3 OR TEMP; Start 09/10/18 at 18:30 Morphine Sulfate (morphine) 2 mg Q4H PRN IV .SEVERE PAIN 7-10 Last administered on 09/19/18 10:46; Admin Dose 2 MG; Start 09/10/18 at 18:30 Heparin Sodium (Porcine) (Heparin (5000 Units/1ml)) 5,000 unit Q12 SC Last administered on 09/12/18 09:13; Admin Dose 5,000 UNIT; Start 09/10/18 at 21:00; Status Hold Oxycodone HCl (Roxicodone) 30 mg Q6H PRN PO PAIN LEVEL 7-10 Last administered on 09/19/18 09:14; Admin Dose 30 MG; Start 09/10/18 at 19:00 Tramadol HCl (Ultram) 50 mg Q6H PRN PO MODERATE PAIN LEVEL 4-6; Start 09/10/18 at 19:00 Miscellaneous Information (Pending Santyl Order For Wound Care) This patient carrion... PRN PRN XX WOUND CARE; Start 09/10/18 at 23:30 Multivitamins/ Minerals (Theragran-M) 1 tab DAILY PO Last administered on 09/19/18 09:13; Admin Dose 1 TAB; Start 09/13/18 at 09:00 Ascorbic Acid (Vitamin C) 500 mg BID PO Last administered on 09/19/18 09:13; Admin Dose 500 MG; Start 09/13/18 at 09:00; Stop 09/23/18 at 08:59 Zinc Sulfate (Zinc Sulfate) 220 mg DAILY PO Last administered on 09/19/18 09:13; Admin Dose 220 MG; Start 09/13/18 at 09:00; Stop 09/23/18 at 08:59 Docusate Sodium (Colace) 100 mg BID PO Last administered on 09/17/18 21:15; Admin Dose 100 MG; Start 09/13/18 at 10:00 Collagenase (Santyl) 1 applic DAILY TOP Last administered on 09/19/18 09:13; Admin Dose 1 APPLIC; Start 09/13/18 at 16:00 Levofloxacin (Levaquin) 500 mg DAILY@06 PO Last administered on 09/19/18 05:22; Admin Dose 500 MG; Start 09/15/18 at 09:30 EVAN HERNÁNDEZ MD Sep 19, 2018 11:41
[2018-09-19] MEDS ORDERED: OXYC30TA PO (11:47)
[2018-09-19] MEDS ORDERED: ASC500 PO (11:47)
[2018-09-19] MEDS ORDERED: [UNRECOGNIZED DRUG - CODE] TP (11:47)
[2018-09-19] MEDS ORDERED: ZINC220C5 PO (11:47)
[2018-09-19] MEDS ORDERED: LEVO500T48 PO (11:47)
[2018-09-19] MEDS ORDERED: BALS60OI TOP (11:47)
[2018-09-19] MEDS ORDERED: MULT-843 PO (11:47)
[2018-09-19] MEDS ORDERED: SAN30GM TOP (11:47)
--- NOTE | 2018-09-19 11:52 | CONS ---
Assessment/Plan Assessment/Plan Hospital Course (Demo Recall) All noted, no acute events Antimicrobials: Blood culture growing gram-positive cocci in clusters 1 set, urine culture grew E. coli, left buttock wound culture growing strep diphtheroids and gram-negative rods Antimicrobials: Levaquin Physical examination: Well-developed middle-aged -[place] man in no distress. Head atraumatic normocephalic chest rise symmetrical breath sounds c lear heart: S1-S2 abdomen soft bowel sounds present extremities wasted without cyanosis Assessment: 1. Bacteremia, consistent with contaminant 2. Urinary tract infection 3. Paraplegia 4. Neurogenic bladder 5. 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 Plan: Remains stable, completing antibiotics for UTI Consultation Date/Type/Reason Admit Date/Time Sep 10, 2018 at 18:10 Initial Consult Date 09/12/18 Type of Consult id Requesting Provider: ROXANA BOX Date/Time of Note DATE: 09/19/18 TIME: 11:51 Exam/Review of Systems Exam Vitals Vital Signs Date Temp Pulse Resp B/P (MAP) Pulse Ox O2 O2 Flow FiO2 Time Delivery Rate 09/19/18 98.5 59 19 98/56 (70) 98 02:00 09/18/18 Room Air 14:20 Intake and Output 09/18/18 09/18/18 09/19/18 1515:00 23:00 07:00 IntakeIntake Total 600 ml 700 ml OutputOutput Total 800 ml 800 ml BalanceBalance -200 ml -100 ml Results Result Diagram: 09/18/18 1418 09/18/18 1418 Results 24hrs Laboratory Tests Test 09/18/18 14:18 White Blood Count 6.6 # Red Blood Count 4.03 L Hemoglobin 10.8 L Hematocrit 36.1 L Mean Corpuscular Volume 89.6 Mean Corpuscular Hemoglobin 26.8 L Mean Corpuscular Hemoglobin Concent 29.9 L Red Cell Distribution Width 14.5 Platelet Count 466 H Mean Platelet Volume 9.5 Immature Granulocytes % 0.500 H Neutrophils % 49.4 Lymphocytes % 36.8 Monocytes % 7.3 Eosinophils % 5.2 Basophils % 0.8 Nucleated Red Blood Cells % 0.0 Immature Granulocytes # 0.030 Neutrophils # 3.2 Lymphocytes # 2.4 Monocytes # 0.5 Eosinophils # 0.3 Basophils # 0.1 Nucleated Red Blood Cells # 0.0 Sodium Level 142 Potassium Level 4.4 Chloride Level 103 Carbon Dioxide Level 31 Anion Gap 8 Blood Urea Nitrogen 15 Creatinine 0.66 Est Glomerular Filtrat Rate mL/min > 60 Glucose Level 88 Calcium Level 9.5 Phosphorus Level 4.2 Magnesium Level 2.1 Medications Medication Current Medications IV Flush (NS 3 ml) 3 ml PER PROTOCOL IV ; Start 09/10/18 at 18:30 Ondansetron HCl (Zofran Inj) 4 mg Q6H PRN IV NAUSEA/VOMITING; Start 09/10/18 at 18:30 Acetaminophen (Tylenol Tab) 650 mg Q6H PRN PO .PAIN 1-3 OR TEMP; Start 09/10/18 at 18:30 Morphine Sulfate (morphine) 2 mg Q4H PRN IV .SEVERE PAIN 7-10 Last administered on 09/19/18 10:46; Admin Dose 2 MG; Start 09/10/18 at 18:30 Heparin Sodium (Porcine) (Heparin (5000 Units/1ml)) 5,000 unit Q12 SC Last administered on 09/12/18 09:13; Admin Dose 5,000 UNIT; Start 09/10/18 at 21:00; Status Hold Oxycodone HCl (Roxicodone) 30 mg Q6H PRN PO PAIN LEVEL 7-10 Last administered on 09/19/18 09:14; Admin Dose 30 MG; Start 09/10/18 at 19:00 Tramadol HCl (Ultram) 50 mg Q6H PRN PO MODERATE PAIN LEVEL 4-6; Start 09/10/18 at 19:00 [facility] This patient carrion... PRN PRN XX WOUND CARE; Start 09/10/18 at 23:30 Multivitamins/ Minerals (Theragran-M) 1 tab DAILY PO Last administered on 09/19/18 09:13; Admin Dose 1 TAB; Start 09/13/18 at 09:00 Ascorbic Acid (Vitamin C) 500 mg BID PO Last administered on 09/19/18 09:13; Admin Dose 500 MG; Start 09/13/18 at 09:00; Stop 09/23/18 at 08:59 Zinc Sulfate (Zinc Sulfate) 220 mg DAILY PO Last administered on 09/19/18 09:13; Admin Dose 220 MG; Start 09/13/18 at 09:00; Stop 09/23/18 at 08:59 Docusate Sodium (Colace) 100 mg BID PO Last administered on 09/17/18at 21:15; Admin Dose 100 MG; Start 09/13/18 at 10:00 Collagenase (Santyl) 1 applic DAILY TOP Last administered on 09/19/18at 09:13; Admin Dose 1 APPLIC; Start 09/13/18 at 16:00 Levofloxacin (Levaquin) 500 mg DAILY@06 PO Last administered on 09/19/18at 05:22; Admin Dose 500 MG; Start 09/15/18 at 09:30 ROSENDO VELAZQUEZ NP Sep 19, 2018 11:52
--- NOTE | 2018-09-19 11:53 | PDOCDIS ---
Discharge Instructions DIAGNOSIS Discharge Diagnosis 1. UTI, resolving 2. Hematuria, resolved 3. Bladder trabeculation 4. ?acute on Chronic vs chronic sacral pressure ulcer, history of osteomyelitis 5. Chronic pain/neuropathy CONDITION [id number] Patient Condition: [id number] Stable HOME CARE INSTRUCTIONS: [id number] Diet Instructions: [id number] Regular FOLLOW UP/APPOINTMENTS Follow-up Plan 1. Follow up with a primary care physician in 1-2 weeks. You [address] call Dr. Arturo Jimenez's office to make an appointment or go to [facility] for further treatment 2. Take Levaquin tomorrow to complete course of treatment for your urinary tract infection 3. Continue local wound care daily 4. Take Zinc and Vit C for 7 more days to help with wound healing, and continue multivitamins daily 5. If experiencing any concerning symptoms, please go to your nearest emergency department REFERRALS Other Referrals Arturo Jimenez MD Specialty: Internal Medicine Office Address [address] [place] [id number] Office [facility] [id number] [facility] [place] [address] EVAN HERNÁNDEZ MD Sep 19, 2018 11:53
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
== END 2018-09-19 12:50 | disposition home or self-care (01) | DRG 689 ==
LOC: FTE 15:46 → PP2 18:10
PROVIDERS: ADMIT Internal Medicine; ATTEND Internal Medicine
DX: N39.0 Urinary tract infection, site not specified (principal); L89.224 Pressure ulcer of left hip, stage 4; L89.214 Pressure ulcer of right hip, stage 4; G82.20 Paraplegia, unspecified; Z68.1 Body mass index [BMI] 19.9 or less, adult; R78.81 Bacteremia; E86.0 Dehydration; Z59.0 Homelessness; G62.9 Polyneuropathy, unspecified; D72.829 Elevated white blood cell count, unspecified; Z72.0 Tobacco use; L89.150 Pressure ulcer of sacral region, unstageable; L89.210 Pressure ulcer of right hip, unstageable; L89.610 Pressure ulcer of right heel, unstageable; L89.320 Pressure ulcer of left buttock, unstageable; B96.20 Unspecified Escherichia coli [E. coli] as the cause of diseases classified elsewhere; B96.4 Proteus (mirabilis) (morganii) as the cause of diseases classified elsewhere; B95.4 Other streptococcus as the cause of diseases classified elsewhere; B96.89 Other specified bacterial agents as the cause of diseases classified elsewhere; R31.9 Hematuria, unspecified; N32.89 Other specified disorders of bladder
CPT/HCPCS: 36415; 71045; 74018; 76775; 80048; 80053; 80202; 81001; 83690; 83735; 84100; 85025; 87070; 87081; 87086; 88104; 88305; 96365; 96375; 97161; 97166; J0696; J1644; J1885; J2270; J2543; J3370; J7030; J7040; J7050

== ENCOUNTER 2018-10-04 10:53 | Emergency (ER) | payer MEDICAID ==
[~2018-10-04] VITALS: Ht 182.9 cm; Wt 70.0 kg
[~2018-10-04 10:53] MED LIST: ASC500 PO; BALS60OI TOP; LEVO500T48 PO; MULT-843 PO; OXYC30TA PO; SAN30GM TOP; ZINC220C5 PO; [UNRECOGNIZED DRUG - CODE] TP
[2018-10-04 11:02] VITALS: BP 135/63; PULSE 86; RESP 16; Ht 182.9 cm; Wt 70.0 kg
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
== END 2018-10-04 12:50 | disposition home or self-care (01) ==
LOC: FTE 10:53
DX: G89.29 Other chronic pain (principal); F17.210 Nicotine dependence, cigarettes, uncomplicated
CPT/HCPCS: 99282

== ENCOUNTER 2019-02-07 20:00 | Inpatient (IN) | payer MEDICAID ==
[~2019-02-07] VITALS: Ht 182.9 cm; Wt 66.7 kg
[~2019-02-07 20:00] MED LIST changes: +OXYC30TA3 PO; +SODI473S5 TP
[2019-02-07] MEDS ORDERED: SODIUM CHLORIDE 0.9% 1L BAG IV* STA (20:43)
[2019-02-07] MEDS ORDERED: ONDANSETRON 4 MG INJ IV STA (20:43)
[2019-02-07] MEDS ORDERED: ACETAMINOPHEN 325 MG TAB PO STA (20:43)
[2019-02-07] MEDS ORDERED: KETOROLAC 15 MG INJ IV STA (20:43)
[2019-02-07] MEDS ORDERED: morphine 4 MG/ML VIAL IV STA (20:43)
[2019-02-07] MEDS ORDERED: CEFTRIAXONE 1 GM/50 ML (PMX) 50 ML IVPB STA (20:43)
[2019-02-07] MEDS ORDERED: ONDANSETRON 4 MG INJ IV PRN (23:00)
[2019-02-07] MEDS ORDERED: ACETAMINOPHEN 325 MG TAB PO PRN (23:00)
[2019-02-08] VITALS (31 sets, daily range): BP systolic 82–116; BP diastolic 52–84; PULSE 62–123; RESP 15–37
[2019-02-08] MEDS ORDERED: SOD CHLORIDE 0.9% 500 ML IV ONE
[2019-02-08] MEDS: SOD CHLORIDE 0.9% 1,000 ML IV SCH ×2 (00:01→12:30)
[2019-02-08] MEDS: PANTOPRAZOLE 40 MG INJ IV SCH (00:29)
[2019-02-08] MEDS ORDERED: SOD CHLORIDE 0.9% 1,000 ML IV ONE (00:30)
[2019-02-08] MEDS ORDERED: ONDANSETRON 4 MG INJ IV PRN (00:30)
[2019-02-08] MEDS ORDERED: NACL 0.9% 3 ML SYG IV SCH (00:30)
[2019-02-08] MEDS ORDERED: DOCUSATE SODIUM 100 MG CAP PO PRN (00:30)
[2019-02-08] MEDS ORDERED: BISACODYL (EC) 5 MG TAB PO PRN (00:30)
[2019-02-08] MEDS ORDERED: VANCOMYCIN IV PER PHARMACY XX SCH (01:00)
[2019-02-08] MEDS: MEROPENEM 1 GM/50ML(PMX) 50 ML IVPB SCH ×3 (01:27→20:10)
[2019-02-08] MEDS: ALBUMIN HUMAN 25% 100 ML IV SCH ×2 (02:26→03:23)
[2019-02-08] MEDS: NORepinephrine 8MG/250 ML (PMX 250 ML IV SCH (03:32)
[2019-02-08] MEDS: VANCOMYCIN 1 GM 250 ML IVPB SCH ×2 (04:36→14:01)
[2019-02-08] MEDS: ENOXAPARIN 40 MG/0.4 ML SYG SC SCH (09:36)
[2019-02-08] MEDS: morphine 2 MG INJ IV PRN (14:39)
[2019-02-08] MEDS: ACETAMINOPHEN 325 MG TAB PO PRN (19:41)
[2019-02-08] MEDS ORDERED: CEFTRIAXONE 1 GM/50 ML (PMX) 50 ML IVPB SCH (20:00)
[2019-02-08] MEDS: HYDROmorphONE 1 MG/ML SYG IV PRN (20:10)
[2019-02-08] MEDS ORDERED: AL HYDROX/MG HYDROX/SIMETH 30 ML CUP PO PRN (23:30)
[2019-02-09] VITALS (73 sets, daily range): BP systolic 80–111; BP diastolic 40–68; PULSE 72–115; RESP 16–38
[2019-02-09] MEDS: SOD CHLORIDE 0.9% 1,000 ML IV SCH ×2 (00:44→13:31)
[2019-02-09] MEDS: VANCOMYCIN 1 GM 250 ML IVPB SCH ×2 (02:09→13:37)
[2019-02-09] MEDS: PANTOPRAZOLE 40 MG INJ IV SCH (05:22)
[2019-02-09] MEDS: MEROPENEM 1 GM/50ML(PMX) 50 ML IVPB SCH ×2 (10:00→21:24)
[2019-02-09] MEDS: ENOXAPARIN 40 MG/0.4 ML SYG SC SCH (11:31)
[2019-02-09] MEDS: HYDROmorphONE 1 MG/ML SYG IV PRN ×2 (11:41→14:49)
[2019-02-09] MEDS ORDERED: POTASSIUM CHLORIDE (SR) 20 MEQ TAB PO STA (13:30)
[2019-02-09] MEDS: ACETAMINOPHEN 325 MG TAB PO PRN ×2 (14:49→21:28)
[2019-02-09] MEDS: FERROUS SULFATE (EC) 325 MG TAB PO SCH ×2 (14:49→22:42)
[2019-02-09] MEDS: DAKINS 0.0125%(1/40) 473 ML SOLUTION TP SCH (18:34)
[2019-02-09] MEDS: BALSAM PERU/CASTOR OIL 60 GM TUBE TOP SCH (18:34)
[2019-02-09] MEDS: NORepinephrine 8MG/250 ML (PMX 250 ML IV SCH (19:14)
[2019-02-09] MEDS ORDERED: PANTOPRAZOLE 40 MG INJ IV SCH (23:30)
[2019-02-10] VITALS (22 sets, daily range): BP systolic 85–126; BP diastolic 47–90; PULSE 64–123; RESP 14–32
[2019-02-10] MEDS: SOD CHLORIDE 0.9% 1,000 ML IV SCH ×2 (00:14→15:43)
[2019-02-10] MEDS: VANCOMYCIN 1 GM 250 ML IVPB SCH ×3 (02:07→18:26)
[2019-02-10] MEDS: morphine 2 MG INJ IV PRN ×3 (04:47→22:04)
[2019-02-10] MEDS: PANTOPRAZOLE 40 MG INJ IV SCH (05:26)
[2019-02-10] MEDS: ACETAMINOPHEN 325 MG TAB PO PRN ×2 (05:27→19:59)
[2019-02-10] MEDS ORDERED: POTASSIUM CHLORIDE (SR) 20 MEQ TAB PO STA (08:36)
[2019-02-10] MEDS: MEROPENEM 1 GM/50ML(PMX) 50 ML IVPB SCH ×2 (10:20→20:01)
[2019-02-10] MEDS: DAKINS 0.0125%(1/40) 473 ML SOLUTION TP SCH (10:23)
[2019-02-10] MEDS: BALSAM PERU/CASTOR OIL 60 GM TUBE TOP SCH (10:23)
[2019-02-10] MEDS: ENOXAPARIN 40 MG/0.4 ML SYG SC SCH (11:17)
[2019-02-10] MEDS: FERROUS SULFATE (EC) 325 MG TAB PO SCH ×2 (15:55→20:00)
[2019-02-10] MEDS: HYDROmorphONE 1 MG/ML SYG IV PRN ×3 (16:06→21:47)
[2019-02-11] VITALS (15 sets, daily range): BP systolic 87–132; BP diastolic 46–80; PULSE 70–102; RESP 14–28
[2019-02-11] MEDS: morphine 2 MG INJ IV PRN (00:27)
[2019-02-11] MEDS: VANCOMYCIN 1 GM 250 ML IVPB SCH ×2 (02:58→16:10)
[2019-02-11] MEDS: PANTOPRAZOLE (EC) 40 MG TAB PO SCH (06:00)
[2019-02-11] MEDS: MEROPENEM 1 GM/50ML(PMX) 50 ML IVPB SCH ×2 (08:45→20:28)
[2019-02-11] MEDS: ASCORBIC ACID 500 MG TAB PO SCH ×2 (08:46→20:28)
[2019-02-11] MEDS: SOD CHLORIDE 0.9% 1,000 ML IV SCH (08:46)
[2019-02-11] MEDS: FERROUS SULFATE (EC) 325 MG TAB PO SCH ×2 (08:46→20:28)
[2019-02-11] MEDS: DAKINS 0.0125%(1/40) 473 ML SOLUTION TP SCH (08:47)
[2019-02-11] MEDS: BALSAM PERU/CASTOR OIL 60 GM TUBE TOP SCH (08:48)
[2019-02-11] MEDS: ENOXAPARIN 40 MG/0.4 ML SYG SC SCH (09:25)
[2019-02-11] MEDS: METHADONE 5 MG TAB PO SCH ×2 (10:20→18:16)
[2019-02-11] MEDS: ACETAMINOPHEN 325 MG TAB PO PRN ×2 (10:51→20:28)
[2019-02-11] MEDS ORDERED: SOD CHLORIDE 0.9% 250 ML IV* ONE (11:17)
[2019-02-11] MEDS: HYDROmorphONE 1 MG/ML SYG IV PRN ×2 (16:45→22:09)
[2019-02-11] MEDS ORDERED: IBUPROFEN 600 MG TAB PO PRN (22:00)
[2019-02-11] MEDS ORDERED: SOD CHLORIDE 0.9% 1,000 ML IV ONE (22:00)
[2019-02-12] MEDS: VANCOMYCIN 1 GM 250 ML IVPB SCH ×4 (00:03→23:59)
[2019-02-12] MEDS: SOD CHLORIDE 0.9% 1,000 ML IV SCH ×3 (00:04→18:14)
[2019-02-12] MEDS: METHADONE 5 MG TAB PO SCH ×3 (00:39→17:23)
[2019-02-12 02:37] VITALS: BP 102/58; PULSE 73; RESP 18
[2019-02-12] MEDS: PANTOPRAZOLE (EC) 40 MG TAB PO SCH (06:12)
[2019-02-12 08:12] VITALS: BP 98/54; PULSE 68; RESP 18
[2019-02-12] MEDS: ASCORBIC ACID 500 MG TAB PO SCH ×2 (09:00→20:25)
[2019-02-12] MEDS: FERROUS SULFATE (EC) 325 MG TAB PO SCH ×2 (09:00→20:25)
[2019-02-12] MEDS: ENOXAPARIN 40 MG/0.4 ML SYG SC SCH (09:00)
[2019-02-12] MEDS: MEROPENEM 1 GM/50ML(PMX) 50 ML IVPB SCH ×2 (09:34→20:26)
[2019-02-12] MEDS: DAKINS 0.0125%(1/40) 473 ML SOLUTION TP SCH (11:00)
[2019-02-12] MEDS: BALSAM PERU/CASTOR OIL 60 GM TUBE TOP SCH (11:00)
[2019-02-12 14:02] VITALS: BP 101/59; PULSE 69; RESP 18
[2019-02-12] MEDS: HYDROmorphONE 1 MG/ML SYG IV PRN ×2 (16:02→19:42)
[2019-02-12 19:30] VITALS: BP 115/69; PULSE 79; RESP 18
[2019-02-13] MEDS: METHADONE 5 MG TAB PO SCH ×3 (02:21→17:30)
[2019-02-13 02:31] VITALS: BP 138/73; PULSE 74; RESP 18
[2019-02-13] MEDS: PANTOPRAZOLE (EC) 40 MG TAB PO SCH (06:00)
[2019-02-13] MEDS: SOD CHLORIDE 0.9% 1,000 ML IV SCH ×2 (06:32→21:00)
[2019-02-13 07:33] VITALS: BP 108/63; PULSE 66; RESP 16
[2019-02-13] MEDS: VANCOMYCIN 1 GM 250 ML IVPB SCH (08:49)
[2019-02-13] MEDS: MEROPENEM 1 GM/50ML(PMX) 50 ML IVPB SCH (08:53)
[2019-02-13] MEDS: ASCORBIC ACID 500 MG TAB PO SCH ×2 (08:53→21:08)
[2019-02-13] MEDS: FERROUS SULFATE (EC) 325 MG TAB PO SCH ×2 (08:53→21:08)
[2019-02-13] MEDS: BALSAM PERU/CASTOR OIL 60 GM TUBE TOP SCH (08:54)
[2019-02-13] MEDS: ENOXAPARIN 40 MG/0.4 ML SYG SC SCH (08:57)
[2019-02-13] MEDS: DAKINS 0.0125%(1/40) 473 ML SOLUTION TP SCH (12:11)
[2019-02-13 14:08] VITALS: BP 102/61; PULSE 71; RESP 18
[2019-02-13] MEDS: CEFTRIAXONE 2 GM/50 ML (PMX) 50 ML IVPB SCH (15:30)
[2019-02-13 19:30] VITALS: BP 124/70; PULSE 75; RESP 18
[2019-02-13] MEDS: NEOMYC/POLYMYX/BACIT 30 GM OINT TOP SCH ×2 (21:00→23:26)
[2019-02-13] MEDS: morphine 2 MG INJ IV PRN (21:08)
[2019-02-13] MEDS: HYDROCODONE/APAP (5/325) TAB PO PRN (22:36)
[2019-02-14] MEDS: METHADONE 5 MG TAB PO SCH ×3 (01:22→17:22)
[2019-02-14 01:51] VITALS: BP 110/64; PULSE 81; RESP 18
[2019-02-14] MEDS: SOD CHLORIDE 0.9% 1,000 ML IV SCH ×3 (03:11→20:25)
[2019-02-14] MEDS: HYDROmorphONE 1 MG/ML SYG IV PRN ×5 (04:52→23:43)
[2019-02-14] MEDS: PANTOPRAZOLE (EC) 40 MG TAB PO SCH (06:13)
[2019-02-14 07:48] VITALS: BP 113/63; PULSE 66; RESP 18
[2019-02-14] MEDS: FERROUS SULFATE (EC) 325 MG TAB PO SCH ×2 (08:29→20:24)
[2019-02-14] MEDS: ASCORBIC ACID 500 MG TAB PO SCH ×2 (08:30→20:24)
[2019-02-14] MEDS: NEOMYC/POLYMYX/BACIT 30 GM OINT TOP SCH ×2 (08:31→20:25)
[2019-02-14] MEDS: BALSAM PERU/CASTOR OIL 60 GM TUBE TOP SCH (08:32)
[2019-02-14] MEDS: ENOXAPARIN 40 MG/0.4 ML SYG SC SCH (08:33)
[2019-02-14] MEDS: DAKINS 0.0125%(1/40) 473 ML SOLUTION TP SCH (08:35)
[2019-02-14 14:03] VITALS: BP 109/63; PULSE 77; RESP 18
[2019-02-14] MEDS: CEFTRIAXONE 2 GM/50 ML (PMX) 50 ML IVPB SCH (15:20)
[2019-02-14 20:00] VITALS: BP 127/76; PULSE 63; RESP 17
[2019-02-15] MEDS: METHADONE 5 MG TAB PO SCH ×3 (01:45→17:15)
[2019-02-15 02:10] VITALS: BP 106/60; PULSE 53; PULSE 56; PULSE 96; RESP 18
[2019-02-15] MEDS: PANTOPRAZOLE (EC) 40 MG TAB PO SCH (06:00)
[2019-02-15] MEDS: SOD CHLORIDE 0.9% 1,000 ML IV SCH ×2 (07:07→20:16)
[2019-02-15 07:36] VITALS: BP 109/69; PULSE 53; RESP 16
[2019-02-15] MEDS: ENOXAPARIN 40 MG/0.4 ML SYG SC SCH (08:20)
[2019-02-15] MEDS: FERROUS SULFATE (EC) 325 MG TAB PO SCH ×2 (08:20→20:07)
[2019-02-15] MEDS: ASCORBIC ACID 500 MG TAB PO SCH ×2 (08:20→20:07)
[2019-02-15] MEDS: DAKINS 0.0125%(1/40) 473 ML SOLUTION TP SCH (08:21)
[2019-02-15] MEDS: NEOMYC/POLYMYX/BACIT 30 GM OINT TOP SCH ×2 (08:22→20:08)
[2019-02-15] MEDS: BALSAM PERU/CASTOR OIL 60 GM TUBE TOP SCH (08:23)
[2019-02-15] MEDS: HYDROmorphONE 1 MG/ML SYG IV PRN ×2 (10:29→20:08)
[2019-02-15] MEDS: CEFTRIAXONE 2 GM/50 ML (PMX) 50 ML IVPB SCH (12:15)
[2019-02-15 14:24] VITALS: BP 109/63; PULSE 54; RESP 15
[2019-02-15 19:58] VITALS: BP 124/73; PULSE 66; RESP 18
[2019-02-15] MEDS: morphine 2 MG INJ IV PRN (21:21)
[2019-02-15] MEDS: HYDROCODONE/APAP (5/325) TAB PO PRN (22:40)
[2019-02-16] MEDS: HYDROmorphONE 1 MG/ML SYG IV PRN ×3 (00:16→14:13)
[2019-02-16 01:22] VITALS: BP 118/74; PULSE 54; RESP 18
[2019-02-16] MEDS: METHADONE 5 MG TAB PO SCH ×3 (01:23→17:30)
[2019-02-16] MEDS: morphine 2 MG INJ IV PRN (02:27)
[2019-02-16] MEDS: PANTOPRAZOLE (EC) 40 MG TAB PO SCH (05:08)
[2019-02-16] MEDS: HYDROCODONE/APAP (5/325) TAB PO PRN (05:08)
[2019-02-16 07:33] VITALS: BP 114/63; PULSE 57; RESP 18
[2019-02-16] MEDS: FERROUS SULFATE (EC) 325 MG TAB PO SCH ×2 (09:37→21:00)
[2019-02-16] MEDS: ASCORBIC ACID 500 MG TAB PO SCH ×2 (09:38→21:00)
[2019-02-16] MEDS: ENOXAPARIN 40 MG/0.4 ML SYG SC SCH (09:38)
[2019-02-16] MEDS: SOD CHLORIDE 0.9% 1,000 ML IV SCH ×2 (09:39→21:48)
[2019-02-16] MEDS: NEOMYC/POLYMYX/BACIT 30 GM OINT TOP SCH ×2 (09:40→20:35)
[2019-02-16] MEDS: DAKINS 0.0125%(1/40) 473 ML SOLUTION TP SCH (09:40)
[2019-02-16] MEDS: BALSAM PERU/CASTOR OIL 60 GM TUBE TOP SCH (09:41)
[2019-02-16] MEDS: CEFTRIAXONE 2 GM/50 ML (PMX) 50 ML IVPB SCH (12:50)
[2019-02-16] MEDS ORDERED: oxyCODONE 5 MG TAB PO PRN (16:30)
[2019-02-16] MEDS ORDERED: oxyCODONE 15 MG TAB PO PRN (16:30)
[2019-02-16 20:00] VITALS: BP 144/67; PULSE 72; RESP 18
[2019-02-16 20:04] VITALS: BP 121/69; PULSE 65; RESP 18
[2019-02-17] MEDS: METHADONE 5 MG TAB PO SCH ×3 (01:09→17:30)
[2019-02-17 02:00] VITALS: BP 123/70; PULSE 63; RESP 18
[2019-02-17] MEDS: PANTOPRAZOLE (EC) 40 MG TAB PO SCH (05:43)
[2019-02-17 06:11] VITALS: Ht 182.9 cm; Wt 66.7 kg
[2019-02-17 08:00] VITALS: BP 166/94; PULSE 87; RESP 18
[2019-02-17] MEDS: ASCORBIC ACID 500 MG TAB PO SCH ×2 (08:24→21:47)
[2019-02-17] MEDS: FERROUS SULFATE (EC) 325 MG TAB PO SCH ×2 (08:24→21:47)
[2019-02-17] MEDS: DAKINS 0.0125%(1/40) 473 ML SOLUTION TP SCH ×2 (08:25→09:00)
[2019-02-17] MEDS: BALSAM PERU/CASTOR OIL 60 GM TUBE TOP SCH ×2 (08:26→09:00)
[2019-02-17] MEDS: NEOMYC/POLYMYX/BACIT 30 GM OINT TOP SCH ×3 (08:26→21:48)
[2019-02-17] MEDS: ENOXAPARIN 40 MG/0.4 ML SYG SC SCH (08:27)
[2019-02-17] MEDS: SOD CHLORIDE 0.9% 1,000 ML IV SCH ×2 (10:50→23:46)
[2019-02-17] MEDS ORDERED: CEFTRIAXONE 2 GM/50 ML (PMX) 50 ML IVPB SCH (13:00)
[2019-02-17] MEDS: CEFTRIAXONE 2 GM/50 ML (PMX) 50 ML IVPB SCH (13:22)
[2019-02-17 14:00] VITALS: BP 150/94; PULSE 71; RESP 18
[2019-02-17 20:00] VITALS: BP 167/102; PULSE 80; RESP 17
[2019-02-18] MEDS: METHADONE 5 MG TAB PO SCH ×3 (00:56→17:30)
[2019-02-18 02:46] VITALS: BP 134/85; PULSE 79; RESP 17
[2019-02-18] MEDS: PANTOPRAZOLE (EC) 40 MG TAB PO SCH (05:44)
[2019-02-18 07:40] VITALS: BP 125/78; PULSE 72; RESP 18
[2019-02-18] MEDS: ASCORBIC ACID 500 MG TAB PO SCH ×2 (08:56→21:02)
[2019-02-18] MEDS: FERROUS SULFATE (EC) 325 MG TAB PO SCH ×2 (08:56→21:02)
[2019-02-18] MEDS: ENOXAPARIN 40 MG/0.4 ML SYG SC SCH (08:57)
[2019-02-18] MEDS: DAKINS 0.0125%(1/40) 473 ML SOLUTION TP SCH (09:03)
[2019-02-18] MEDS: NEOMYC/POLYMYX/BACIT 30 GM OINT TOP SCH ×2 (09:04→21:03)
[2019-02-18] MEDS: BALSAM PERU/CASTOR OIL 60 GM TUBE TOP SCH (09:05)
[2019-02-18] MEDS: SOD CHLORIDE 0.9% 1,000 ML IV SCH (12:35)
[2019-02-18] MEDS: CEFTRIAXONE 2 GM/50 ML (PMX) 50 ML IVPB SCH (12:36)
[2019-02-18 19:52] VITALS: BP 121/76; PULSE 92; RESP 18
[2019-02-19] MEDS: SOD CHLORIDE 0.9% 1,000 ML IV SCH (01:07)
[2019-02-19] MEDS: METHADONE 5 MG TAB PO SCH (01:10)
[2019-02-19 02:20] VITALS: BP 129/80; PULSE 90; RESP 18
[2019-02-19] MEDS: PANTOPRAZOLE (EC) 40 MG TAB PO SCH (06:00)
[2019-02-19 07:20] VITALS: BP 145/89; PULSE 15; RESP 15
[2019-02-19] MEDS: ENOXAPARIN 40 MG/0.4 ML SYG SC SCH (09:00)
[2019-02-19] MEDS ORDERED: oxyCODONE 5 MG TAB PO PRN (10:30)
[2019-02-19] MEDS: CEFTRIAXONE 2 GM/50 ML (PMX) 50 ML IVPB SCH (12:06)
[2019-02-19] MEDS: FERROUS SULFATE (EC) 325 MG TAB PO SCH ×2 (12:08→20:34)
[2019-02-19] MEDS: ASCORBIC ACID 500 MG TAB PO SCH ×2 (12:08→20:34)
[2019-02-19] MEDS: DAKINS 0.0125%(1/40) 473 ML SOLUTION TP SCH (12:09)
[2019-02-19] MEDS: NEOMYC/POLYMYX/BACIT 30 GM OINT TOP SCH ×2 (12:09→20:35)
[2019-02-19] MEDS: BALSAM PERU/CASTOR OIL 60 GM TUBE TOP SCH (12:09)
[2019-02-19 14:20] VITALS: BP 137/95; PULSE 92; RESP 16
[2019-02-19 20:00] VITALS: BP 132/89; PULSE 89; RESP 17
[2019-02-20 02:00] VITALS: BP 133/74; PULSE 98; RESP 18
[2019-02-20] MEDS: PANTOPRAZOLE (EC) 40 MG TAB PO SCH (06:00)
[2019-02-20 07:28] VITALS: BP 138/94; PULSE 79; RESP 15
[2019-02-20] MEDS ORDERED: oxyCODONE 5 MG TAB PO PRN (07:30)
[2019-02-20] MEDS: ASCORBIC ACID 500 MG TAB PO SCH ×2 (08:54→21:00)
[2019-02-20] MEDS: FERROUS SULFATE (EC) 325 MG TAB PO SCH ×2 (08:54→21:00)
[2019-02-20] MEDS: DAKINS 0.0125%(1/40) 473 ML SOLUTION TP SCH (08:55)
[2019-02-20] MEDS: ENOXAPARIN 40 MG/0.4 ML SYG SC SCH (08:55)
[2019-02-20] MEDS: NEOMYC/POLYMYX/BACIT 30 GM OINT TOP SCH ×2 (08:55→21:00)
[2019-02-20] MEDS: BALSAM PERU/CASTOR OIL 60 GM TUBE TOP SCH (08:55)
[2019-02-20] MEDS: CEFTRIAXONE 2 GM/50 ML (PMX) 50 ML IVPB SCH (13:35)
[2019-02-20 13:53] VITALS: BP 116/72; PULSE 95; RESP 15
[2019-02-20 20:00] VITALS: BP 125/77; PULSE 93; RESP 17
[2019-02-21 02:00] VITALS: BP 126/67; PULSE 79; RESP 18
[2019-02-21] MEDS: PANTOPRAZOLE (EC) 40 MG TAB PO SCH (05:04)
[2019-02-21] MEDS: NEOMYC/POLYMYX/BACIT 30 GM OINT TOP SCH ×2 (09:00→20:05)
[2019-02-21] MEDS: DAKINS 0.0125%(1/40) 473 ML SOLUTION TP SCH (09:00)
[2019-02-21] MEDS: ASCORBIC ACID 500 MG TAB PO SCH ×2 (09:00→20:04)
[2019-02-21] MEDS: BALSAM PERU/CASTOR OIL 60 GM TUBE TOP SCH (09:00)
[2019-02-21] MEDS: FERROUS SULFATE (EC) 325 MG TAB PO SCH ×2 (09:00→20:04)
[2019-02-21] MEDS: ENOXAPARIN 40 MG/0.4 ML SYG SC SCH (09:00)
[2019-02-21] MEDS: oxyCODONE 5 MG TAB PO PRN ×2 (12:25→20:05)
[2019-02-21] MEDS: CEFTRIAXONE 2 GM/50 ML (PMX) 50 ML IVPB SCH (12:27)
[2019-02-21 14:03] VITALS: BP 107/69; PULSE 95; RESP 16
[2019-02-21] MEDS: HYDROCODONE/APAP (5/325) TAB PO PRN (16:49)
[2019-02-21 19:43] VITALS: BP 128/81; PULSE 81; RESP 18
[2019-02-21 23:00] VITALS: BP 106/74; PULSE 112; RESP 17
[2019-02-22 01:59] VITALS: BP 101/51; PULSE 85; RESP 18
[2019-02-22 08:30] VITALS: BP 114/56; PULSE 96; RESP 19
[2019-02-22] MEDS: oxyCODONE 5 MG TAB PO PRN ×2 (10:14→16:51)
[2019-02-22] MEDS: ENOXAPARIN 40 MG/0.4 ML SYG SC SCH (10:14)
[2019-02-22] MEDS: ASCORBIC ACID 500 MG TAB PO SCH ×2 (10:14→20:32)
[2019-02-22] MEDS: FERROUS SULFATE (EC) 325 MG TAB PO SCH ×2 (10:14→20:32)
[2019-02-22 14:59] VITALS: BP 116/63; PULSE 104; RESP 18
[2019-02-22] MEDS: CEFTRIAXONE 2 GM/50 ML (PMX) 50 ML IVPB SCH (15:36)
[2019-02-22] MEDS: DAKINS 0.0125%(1/40) 473 ML SOLUTION TP SCH (15:37)
[2019-02-22] MEDS: NEOMYC/POLYMYX/BACIT 30 GM OINT TOP SCH ×2 (15:37→20:32)
[2019-02-22] MEDS: BALSAM PERU/CASTOR OIL 60 GM TUBE TOP SCH (15:38)
[2019-02-22 19:37] VITALS: BP 120/72; PULSE 106; PULSE 116; RESP 17
[2019-02-22] MEDS: HYDROCODONE/APAP (5/325) TAB PO PRN (20:41)
[2019-02-23] MEDS: oxyCODONE 5 MG TAB PO PRN ×3 (00:23→15:20)
[2019-02-23 02:03] VITALS: BP 123/71; PULSE 100; RESP 16
[2019-02-23] MEDS: BALSAM PERU/CASTOR OIL 60 GM TUBE TOP SCH (09:00)
[2019-02-23] MEDS: FERROUS SULFATE (EC) 325 MG TAB PO SCH ×2 (09:04→20:17)
[2019-02-23] MEDS: ASCORBIC ACID 500 MG TAB PO SCH ×2 (09:04→20:17)
[2019-02-23] MEDS: ENOXAPARIN 40 MG/0.4 ML SYG SC SCH ×2 (09:07→15:17)
[2019-02-23] MEDS: NEOMYC/POLYMYX/BACIT 30 GM OINT TOP SCH ×2 (09:15→20:19)
[2019-02-23] MEDS: DAKINS 0.0125%(1/40) 473 ML SOLUTION TP SCH (09:17)
[2019-02-23] MEDS: CEFTRIAXONE 2 GM/50 ML (PMX) 50 ML IVPB SCH (13:14)
[2019-02-23 14:12] VITALS: BP 122/61; PULSE 102; RESP 18
[2019-02-23 20:00] VITALS: BP 127/61; PULSE 113; RESP 18
[2019-02-23] MEDS ORDERED: SOD CHLORIDE 0.9% 500 ML IV ONE (22:30)
[2019-02-24 01:18] VITALS: PULSE 108
[2019-02-24 02:14] VITALS: BP 118/57; PULSE 102; RESP 18
[2019-02-24] MEDS: oxyCODONE 5 MG TAB PO PRN ×2 (03:53→20:06)
[2019-02-24 07:16] VITALS: BP 131/74; PULSE 107; RESP 19
[2019-02-24] MEDS: NEOMYC/POLYMYX/BACIT 30 GM OINT TOP SCH ×2 (09:04→21:00)
[2019-02-24] MEDS: ASCORBIC ACID 500 MG TAB PO SCH ×2 (09:04→20:06)
[2019-02-24] MEDS: BALSAM PERU/CASTOR OIL 60 GM TUBE TOP SCH (09:04)
[2019-02-24] MEDS: FERROUS SULFATE (EC) 325 MG TAB PO SCH ×2 (09:05→20:06)
[2019-02-24] MEDS: DAKINS 0.0125%(1/40) 473 ML SOLUTION TP SCH (09:05)
[2019-02-24] MEDS: ENOXAPARIN 40 MG/0.4 ML SYG SC SCH (09:12)
[2019-02-24] MEDS: CEFTRIAXONE 2 GM/50 ML (PMX) 50 ML IVPB SCH (13:45)
[2019-02-24 19:45] VITALS: BP 133/79; PULSE 105; RESP 21
[2019-02-25 02:11] VITALS: BP 116/63; PULSE 102; RESP 18
[2019-02-25] MEDS: oxyCODONE 5 MG TAB PO PRN ×2 (07:09→15:08)
[2019-02-25] MEDS: FERROUS SULFATE (EC) 325 MG TAB PO SCH ×2 (08:59→20:49)
[2019-02-25] MEDS: ASCORBIC ACID 500 MG TAB PO SCH ×2 (08:59→20:49)
[2019-02-25] MEDS: HYDROCODONE/APAP (5/325) TAB PO PRN ×2 (09:00→17:45)
[2019-02-25] MEDS: ENOXAPARIN 40 MG/0.4 ML SYG SC SCH (09:00)
[2019-02-25] MEDS: BALSAM PERU/CASTOR OIL 60 GM TUBE TOP SCH (09:01)
[2019-02-25] MEDS: DAKINS 0.0125%(1/40) 473 ML SOLUTION TP SCH (09:01)
[2019-02-25] MEDS: NEOMYC/POLYMYX/BACIT 30 GM OINT TOP SCH ×2 (09:01→20:49)
[2019-02-25 10:32] VITALS: BP 114/59; PULSE 77; RESP 18
[2019-02-25] MEDS: CEFTRIAXONE 2 GM/50 ML (PMX) 50 ML IVPB SCH (12:44)
[2019-02-25 16:15] VITALS: BP 122/70; PULSE 75; RESP 18
[2019-02-25 19:29] VITALS: BP 126/73; PULSE 99; RESP 18
[2019-02-26 01:25] VITALS: BP 115/71; PULSE 104; RESP 18
[2019-02-26] MEDS: oxyCODONE 5 MG TAB PO PRN ×3 (03:37→21:25)
[2019-02-26] MEDS: DAKINS 0.0125%(1/40) 473 ML SOLUTION TP SCH (09:00)
[2019-02-26] MEDS: ENOXAPARIN 40 MG/0.4 ML SYG SC SCH (09:00)
[2019-02-26] MEDS: NEOMYC/POLYMYX/BACIT 30 GM OINT TOP SCH ×2 (09:00→21:00)
[2019-02-26] MEDS: FERROUS SULFATE (EC) 325 MG TAB PO SCH ×2 (09:00→21:24)
[2019-02-26] MEDS: ASCORBIC ACID 500 MG TAB PO SCH ×2 (09:00→21:24)
[2019-02-26] MEDS: BALSAM PERU/CASTOR OIL 60 GM TUBE TOP SCH (09:00)
[2019-02-26 13:20] VITALS: BP 109/61; PULSE 101; RESP 17
[2019-02-26] MEDS: CEFTRIAXONE 2 GM/50 ML (PMX) 50 ML IVPB SCH (13:31)
[2019-02-26 20:33] VITALS: BP 127/77; PULSE 110; RESP 18
[2019-02-27 02:30] VITALS: BP 129/66; PULSE 118; RESP 18
[2019-02-27 02:54] VITALS: PULSE 110
[2019-02-27 03:44] VITALS: PULSE 102
[2019-02-27] MEDS: oxyCODONE 5 MG TAB PO PRN ×2 (06:50→14:01)
[2019-02-27] MEDS: DAKINS 0.0125%(1/40) 473 ML SOLUTION TP SCH ×2 (09:00→09:03)
[2019-02-27] MEDS: BALSAM PERU/CASTOR OIL 60 GM TUBE TOP SCH ×2 (09:00→09:03)
[2019-02-27] MEDS: ENOXAPARIN 40 MG/0.4 ML SYG SC SCH (09:00)
[2019-02-27] MEDS: ASCORBIC ACID 500 MG TAB PO SCH ×2 (09:01→21:38)
[2019-02-27] MEDS: FERROUS SULFATE (EC) 325 MG TAB PO SCH ×2 (09:01→21:38)
[2019-02-27] MEDS: NEOMYC/POLYMYX/BACIT 30 GM OINT TOP SCH ×2 (09:03→21:00)
[2019-02-27 09:12] VITALS: BP 116/68; PULSE 101; RESP 18
[2019-02-27] MEDS: CEFTRIAXONE 2 GM/50 ML (PMX) 50 ML IVPB SCH (13:31)
[2019-02-27 14:12] VITALS: BP 122/67; PULSE 102; RESP 18
[2019-02-27 19:59] VITALS: BP 110/68; PULSE 101; RESP 18
[2019-02-28] MEDS: oxyCODONE 5 MG TAB PO PRN ×3 (00:08→23:27)
[2019-02-28 02:00] VITALS: BP 134/68; PULSE 103; RESP 18
[2019-02-28 08:07] VITALS: BP 117/68; PULSE 76; RESP 18
[2019-02-28] MEDS: NEOMYC/POLYMYX/BACIT 30 GM OINT TOP SCH ×2 (09:00→20:19)
[2019-02-28] MEDS: ENOXAPARIN 40 MG/0.4 ML SYG SC SCH (09:00)
[2019-02-28] MEDS: FERROUS SULFATE (EC) 325 MG TAB PO SCH ×2 (09:00→20:18)
[2019-02-28] MEDS: DAKINS 0.0125%(1/40) 473 ML SOLUTION TP SCH (09:00)
[2019-02-28] MEDS: ASCORBIC ACID 500 MG TAB PO SCH ×2 (09:00→20:17)
[2019-02-28] MEDS: BALSAM PERU/CASTOR OIL 60 GM TUBE TOP SCH (09:00)
[2019-02-28] MEDS: CEFTRIAXONE 2 GM/50 ML (PMX) 50 ML IVPB SCH (13:12)
[2019-02-28 15:05] VITALS: BP 112/62; PULSE 93
[2019-02-28 20:03] VITALS: BP 134/76; PULSE 101; RESP 18
[2019-03-01 02:09] VITALS: BP 117/62; PULSE 96; RESP 18
[2019-03-01] MEDS: DAKINS 0.0125%(1/40) 473 ML SOLUTION TP SCH (09:00)
[2019-03-01] MEDS: FERROUS SULFATE (EC) 325 MG TAB PO SCH ×2 (09:00→21:14)
[2019-03-01] MEDS: BALSAM PERU/CASTOR OIL 60 GM TUBE TOP SCH (09:00)
[2019-03-01] MEDS: ZINC SULFATE 220 MG CAP PO SCH (09:00)
[2019-03-01] MEDS: MULTIVITAMINS/MINERALS TAB PO SCH (09:00)
[2019-03-01] MEDS: ENOXAPARIN 40 MG/0.4 ML SYG SC SCH (09:00)
[2019-03-01] MEDS: NEOMYC/POLYMYX/BACIT 30 GM OINT TOP SCH ×2 (09:00→21:16)
[2019-03-01] MEDS: ASCORBIC ACID 500 MG TAB PO SCH ×2 (09:00→21:14)
[2019-03-01] MEDS: CEFTRIAXONE 2 GM/50 ML (PMX) 50 ML IVPB SCH (13:21)
[2019-03-01] MEDS: oxyCODONE 5 MG TAB PO PRN ×2 (14:40→21:14)
[2019-03-01 14:47] VITALS: BP 116/69; PULSE 88; RESP 20
[2019-03-01 19:44] VITALS: BP 141/67; PULSE 104; RESP 19
[2019-03-01] MEDS: HYDROCODONE/APAP (5/325) TAB PO PRN (23:36)
[2019-03-02 01:30] VITALS: BP 121/67; PULSE 94; RESP 20
[2019-03-02] MEDS: oxyCODONE 5 MG TAB PO PRN (02:08)
[2019-03-02 08:00] VITALS: BP 125/60; PULSE 88; RESP 19
[2019-03-02] MEDS: ASCORBIC ACID 500 MG TAB PO SCH ×2 (09:00→21:57)
[2019-03-02] MEDS: NEOMYC/POLYMYX/BACIT 30 GM OINT TOP SCH ×2 (09:00→21:00)
[2019-03-02] MEDS: DAKINS 0.0125%(1/40) 473 ML SOLUTION TP SCH (09:00)
[2019-03-02] MEDS: BALSAM PERU/CASTOR OIL 60 GM TUBE TOP SCH (09:00)
[2019-03-02] MEDS: FERROUS SULFATE (EC) 325 MG TAB PO SCH ×2 (09:00→21:57)
[2019-03-02] MEDS: MULTIVITAMINS/MINERALS TAB PO SCH (09:00)
[2019-03-02] MEDS: ENOXAPARIN 40 MG/0.4 ML SYG SC SCH (09:00)
[2019-03-02] MEDS: ZINC SULFATE 220 MG CAP PO SCH (09:00)
[2019-03-02] MEDS: CEFTRIAXONE 2 GM/50 ML (PMX) 50 ML IVPB SCH (13:00)
[2019-03-02 14:08] VITALS: BP 125/72; PULSE 98; RESP 19
[2019-03-02 21:00] VITALS: BP 130/67; PULSE 100; RESP 16
[2019-03-03 01:59] VITALS: BP 129/74; PULSE 118; RESP 18
[2019-03-03 08:04] VITALS: BP 132/74; PULSE 101; RESP 18
[2019-03-03] MEDS: MULTIVITAMINS/MINERALS TAB PO SCH (08:37)
[2019-03-03] MEDS: ASCORBIC ACID 500 MG TAB PO SCH ×3 (08:37→21:45)
[2019-03-03] MEDS: oxyCODONE 5 MG TAB PO PRN ×2 (08:37→15:55)
[2019-03-03] MEDS: ZINC SULFATE 220 MG CAP PO SCH (08:37)
[2019-03-03] MEDS: FERROUS SULFATE (EC) 325 MG TAB PO SCH ×3 (08:37→21:45)
[2019-03-03] MEDS: DAKINS 0.0125%(1/40) 473 ML SOLUTION TP SCH (08:44)
[2019-03-03] MEDS: BALSAM PERU/CASTOR OIL 60 GM TUBE TOP SCH (08:45)
[2019-03-03] MEDS: NEOMYC/POLYMYX/BACIT 30 GM OINT TOP SCH ×2 (09:00→21:45)
[2019-03-03] MEDS: ENOXAPARIN 40 MG/0.4 ML SYG SC SCH (09:00)
[2019-03-03] MEDS: CEFTRIAXONE 2 GM/50 ML (PMX) 50 ML IVPB SCH (12:47)
[2019-03-03 15:28] VITALS: BP 126/68; PULSE 100; RESP 18
[2019-03-03 19:28] VITALS: BP 124/77; PULSE 102; RESP 18
[2019-03-04 01:44] VITALS: BP 124/75; PULSE 106; RESP 18
[2019-03-04] MEDS: DIPHENHYDRAMINE 25 MG CAP PO PRN (03:25)
[2019-03-04] MEDS: FERROUS SULFATE (EC) 325 MG TAB PO SCH ×3 (04:00→22:00)
[2019-03-04] MEDS: ASCORBIC ACID 500 MG TAB PO SCH ×3 (04:00→22:00)
[2019-03-04] MEDS: oxyCODONE 5 MG TAB PO PRN (06:19)
[2019-03-04] MEDS: ENOXAPARIN 40 MG/0.4 ML SYG SC SCH (09:00)
[2019-03-04] MEDS: ZINC SULFATE 220 MG CAP PO SCH (09:07)
[2019-03-04] MEDS: BALSAM PERU/CASTOR OIL 60 GM TUBE TOP SCH (09:08)
[2019-03-04] MEDS: DAKINS 0.0125%(1/40) 473 ML SOLUTION TP SCH (09:08)
[2019-03-04] MEDS: MULTIVITAMINS/MINERALS TAB PO SCH (09:08)
[2019-03-04] MEDS: NEOMYC/POLYMYX/BACIT 30 GM OINT TOP SCH ×2 (09:10→21:00)
[2019-03-04] MEDS: CEFTRIAXONE 2 GM/50 ML (PMX) 50 ML IVPB SCH (13:34)
[2019-03-04] MEDS: CALAMINE/PRAMOXINE LOT 180 ML BTL TOP PRN (15:32)
[2019-03-04 15:34] VITALS: BP 125/78; PULSE 113; RESP 18
[2019-03-04 19:22] VITALS: BP 121/70; PULSE 114; RESP 18
[2019-03-05 01:06] VITALS: BP 125/68; PULSE 99; RESP 18
[2019-03-05] MEDS: DIPHENHYDRAMINE 25 MG CAP PO PRN (01:58)
[2019-03-05] MEDS: HYDROCODONE/APAP (5/325) TAB PO PRN ×2 (01:58→09:53)
[2019-03-05] MEDS: ENOXAPARIN 40 MG/0.4 ML SYG SC SCH (09:00)
[2019-03-05] MEDS: NEOMYC/POLYMYX/BACIT 30 GM OINT TOP SCH ×2 (09:00→21:03)
[2019-03-05] MEDS: BALSAM PERU/CASTOR OIL 60 GM TUBE TOP SCH (09:00)
[2019-03-05] MEDS: FLUTICASONE 0.05% 16 GM NAS SPRAY NASAL SCH (09:00)
[2019-03-05] MEDS: DAKINS 0.0125%(1/40) 473 ML SOLUTION TP SCH (09:00)
[2019-03-05 09:15] VITALS: BP 123/68; PULSE 88; RESP 16
[2019-03-05] MEDS: FERROUS SULFATE (EC) 325 MG TAB PO SCH ×2 (09:54→21:01)
[2019-03-05] MEDS: ASCORBIC ACID 500 MG TAB PO SCH ×2 (09:54→21:01)
[2019-03-05] MEDS: MULTIVITAMINS/MINERALS TAB PO SCH (09:55)
[2019-03-05] MEDS: ZINC SULFATE 220 MG CAP PO SCH (09:55)
[2019-03-05] MEDS: CEFTRIAXONE 2 GM/50 ML (PMX) 50 ML IVPB SCH (13:00)
[2019-03-05 15:18] VITALS: BP 137/84; PULSE 102; RESP 18
[2019-03-05] MEDS ORDERED: LIDOCAINE 1% (MDV) 20 ML INJ SC ONE (18:00)
[2019-03-05] MEDS: oxyCODONE 5 MG TAB PO PRN ×2 (18:05→22:05)
[2019-03-05 19:32] VITALS: BP 128/89; PULSE 104; RESP 18
[2019-03-06 01:18] VITALS: BP 114/55; PULSE 100; RESP 18
[2019-03-06] MEDS: oxyCODONE 5 MG TAB PO PRN ×3 (03:03→17:41)
[2019-03-06 08:28] VITALS: BP 119/62; PULSE 77; RESP 16
[2019-03-06] MEDS: ENOXAPARIN 40 MG/0.4 ML SYG SC SCH (09:00)
[2019-03-06] MEDS: FLUTICASONE 0.05% 16 GM NAS SPRAY NASAL SCH (09:00)
[2019-03-06] MEDS: ASCORBIC ACID 500 MG TAB PO SCH ×2 (09:23→21:00)
[2019-03-06] MEDS: ZINC SULFATE 220 MG CAP PO SCH (09:23)
[2019-03-06] MEDS: MULTIVITAMINS/MINERALS TAB PO SCH (09:24)
[2019-03-06] MEDS: FERROUS SULFATE (EC) 325 MG TAB PO SCH ×2 (09:24→21:00)
[2019-03-06] MEDS: NEOMYC/POLYMYX/BACIT 30 GM OINT TOP SCH ×2 (09:26→21:00)
[2019-03-06] MEDS: DAKINS 0.0125%(1/40) 473 ML SOLUTION TP SCH (09:28)
[2019-03-06] MEDS: BALSAM PERU/CASTOR OIL 60 GM TUBE TOP SCH (09:28)
[2019-03-06] MEDS: CEFTRIAXONE 2 GM/50 ML (PMX) 50 ML IVPB SCH (13:47)
[2019-03-06 19:51] VITALS: BP 113/53; PULSE 76; RESP 18
[2019-03-07 01:11] VITALS: BP 123/57; PULSE 81; RESP 18
[2019-03-07] MEDS: FLUTICASONE 0.05% 16 GM NAS SPRAY NASAL SCH (09:00)
[2019-03-07] MEDS: NEOMYC/POLYMYX/BACIT 30 GM OINT TOP SCH ×2 (09:00→21:00)
[2019-03-07] MEDS: ENOXAPARIN 40 MG/0.4 ML SYG SC SCH ×2 (09:00→21:00)
[2019-03-07] MEDS: DAKINS 0.0125%(1/40) 473 ML SOLUTION TP SCH (09:00)
[2019-03-07] MEDS: BALSAM PERU/CASTOR OIL 60 GM TUBE TOP SCH (09:00)
[2019-03-07] MEDS: ASCORBIC ACID 500 MG TAB PO SCH ×2 (10:18→21:00)
[2019-03-07] MEDS: MULTIVITAMINS/MINERALS TAB PO SCH (10:18)
[2019-03-07] MEDS: FERROUS SULFATE (EC) 325 MG TAB PO SCH ×2 (10:18→21:00)
[2019-03-07] MEDS: ZINC SULFATE 220 MG CAP PO SCH (10:18)
[2019-03-07] MEDS: oxyCODONE 5 MG TAB PO PRN ×3 (10:26→18:51)
[2019-03-07 10:41] VITALS: BP 126/66; PULSE 66; RESP 16
[2019-03-07] MEDS: CEFTRIAXONE 2 GM/50 ML (PMX) 50 ML IVPB SCH (13:27)
[2019-03-07 14:28] VITALS: BP 133/63; PULSE 90; RESP 18
[2019-03-07 19:37] VITALS: BP 131/61; PULSE 89; RESP 17
[2019-03-08] MEDS: oxyCODONE 5 MG TAB PO PRN ×3 (00:43→20:25)
[2019-03-08] MEDS: FLUTICASONE 0.05% 16 GM NAS SPRAY NASAL SCH (09:00)
[2019-03-08] MEDS: NEOMYC/POLYMYX/BACIT 30 GM OINT TOP SCH ×2 (09:00→20:26)
[2019-03-08] MEDS: ASCORBIC ACID 500 MG TAB PO SCH ×2 (09:25→20:25)
[2019-03-08] MEDS: ZINC SULFATE 220 MG CAP PO SCH (09:25)
[2019-03-08] MEDS: MULTIVITAMINS/MINERALS TAB PO SCH (09:25)
[2019-03-08] MEDS: FERROUS SULFATE (EC) 325 MG TAB PO SCH ×2 (09:25→20:25)
[2019-03-08] MEDS: DAKINS 0.0125%(1/40) 473 ML SOLUTION TP SCH (09:26)
[2019-03-08] MEDS: BALSAM PERU/CASTOR OIL 60 GM TUBE TOP SCH (09:26)
[2019-03-08] MEDS: CEFTRIAXONE 2 GM/50 ML (PMX) 50 ML IVPB SCH (14:00)
[2019-03-08 20:00] VITALS: BP 131/73; PULSE 103; RESP 17
[2019-03-08] MEDS: ENOXAPARIN 40 MG/0.4 ML SYG SC SCH (20:34)
[2019-03-09] MEDS: oxyCODONE 5 MG TAB PO PRN ×3 (00:35→20:58)
[2019-03-09 01:39] VITALS: BP 138/67; PULSE 98; RESP 19
[2019-03-09] MEDS: DIPHENHYDRAMINE 25 MG CAP PO PRN (01:51)
[2019-03-09 07:17] VITALS: BP 104/56; PULSE 91; RESP 18
[2019-03-09] MEDS: NEOMYC/POLYMYX/BACIT 30 GM OINT TOP SCH ×3 (09:00→20:58)
[2019-03-09] MEDS: BALSAM PERU/CASTOR OIL 60 GM TUBE TOP SCH ×2 (09:00→09:33)
[2019-03-09] MEDS: DAKINS 0.0125%(1/40) 473 ML SOLUTION TP SCH ×2 (09:00→09:33)
[2019-03-09] MEDS: FLUTICASONE 0.05% 16 GM NAS SPRAY NASAL SCH (09:32)
[2019-03-09] MEDS: ASCORBIC ACID 500 MG TAB PO SCH ×2 (09:32→20:57)
[2019-03-09] MEDS: ZINC SULFATE 220 MG CAP PO SCH (09:32)
[2019-03-09] MEDS: FERROUS SULFATE (EC) 325 MG TAB PO SCH ×2 (09:32→20:57)
[2019-03-09] MEDS: MULTIVITAMINS/MINERALS TAB PO SCH (09:32)
[2019-03-09] MEDS: CEFTRIAXONE 2 GM/50 ML (PMX) 50 ML IVPB SCH (13:29)
[2019-03-09 20:46] VITALS: BP 114/61; PULSE 94; RESP 18
[2019-03-09] MEDS: ENOXAPARIN 40 MG/0.4 ML SYG SC SCH (21:41)
[2019-03-10] MEDS: oxyCODONE 5 MG TAB PO PRN ×5 (00:49→22:24)
[2019-03-10 02:07] VITALS: BP 114/60; PULSE 97; RESP 20
[2019-03-10] MEDS: ASCORBIC ACID 500 MG TAB PO SCH ×2 (08:59→21:36)
[2019-03-10] MEDS: FERROUS SULFATE (EC) 325 MG TAB PO SCH ×2 (08:59→21:36)
[2019-03-10] MEDS: ZINC SULFATE 220 MG CAP PO SCH (08:59)
[2019-03-10] MEDS: MULTIVITAMINS/MINERALS TAB PO SCH (09:00)
[2019-03-10] MEDS: FLUTICASONE 0.05% 16 GM NAS SPRAY NASAL SCH (09:00)
[2019-03-10] MEDS: DAKINS 0.0125%(1/40) 473 ML SOLUTION TP SCH ×2 (09:00→18:23)
[2019-03-10] MEDS: BALSAM PERU/CASTOR OIL 60 GM TUBE TOP SCH ×2 (09:00→18:23)
[2019-03-10] MEDS: NEOMYC/POLYMYX/BACIT 30 GM OINT TOP SCH ×2 (09:01→21:38)
[2019-03-10] MEDS: CEFTRIAXONE 2 GM/50 ML (PMX) 50 ML IVPB SCH (13:23)
[2019-03-10 14:35] VITALS: BP 128/72; PULSE 101; RESP 20
[2019-03-10 20:00] VITALS: BP 116/58; PULSE 108; RESP 18
[2019-03-10] MEDS: ENOXAPARIN 40 MG/0.4 ML SYG SC SCH (21:37)
[2019-03-11 02:24] VITALS: BP 110/57; PULSE 95; RESP 18
[2019-03-11 08:15] VITALS: BP 105/52; PULSE 97; RESP 16
[2019-03-11] MEDS: FLUTICASONE 0.05% 16 GM NAS SPRAY NASAL SCH (10:05)
[2019-03-11] MEDS: FERROUS SULFATE (EC) 325 MG TAB PO SCH (11:46)
[2019-03-11] MEDS: ASCORBIC ACID 500 MG TAB PO SCH ×2 (11:46→20:44)
[2019-03-11] MEDS: ZINC SULFATE 220 MG CAP PO SCH (11:47)
[2019-03-11] MEDS: NEOMYC/POLYMYX/BACIT 30 GM OINT TOP SCH ×2 (11:47→20:44)
[2019-03-11] MEDS: MULTIVITAMINS/MINERALS TAB PO SCH (11:47)
[2019-03-11] MEDS: CEFTRIAXONE 2 GM/50 ML (PMX) 50 ML IVPB SCH (14:18)
[2019-03-11 14:23] VITALS: BP 100/55; PULSE 85; RESP 18
[2019-03-11] MEDS: oxyCODONE 5 MG TAB PO PRN ×3 (14:37→23:11)
[2019-03-11 20:08] VITALS: BP 105/59; PULSE 90; RESP 18
[2019-03-11] MEDS: ENOXAPARIN 40 MG/0.4 ML SYG SC SCH (20:45)
[2019-03-12 01:11] VITALS: BP 119/58; PULSE 90; RESP 18
[2019-03-12] MEDS: FLUTICASONE 0.05% 16 GM NAS SPRAY NASAL SCH (09:00)
[2019-03-12] MEDS: ASCORBIC ACID 500 MG TAB PO SCH ×3 (09:38→23:02)
[2019-03-12] MEDS: ZINC SULFATE 220 MG CAP PO SCH (09:39)
[2019-03-12] MEDS: MULTIVITAMINS/MINERALS TAB PO SCH (09:39)
[2019-03-12] MEDS: NEOMYC/POLYMYX/BACIT 30 GM OINT TOP SCH ×2 (09:39→21:00)
[2019-03-12] MEDS: BALSAM PERU/CASTOR OIL 60 GM TUBE TOP SCH (09:40)
[2019-03-12] MEDS: DAKINS 0.0125%(1/40) 473 ML SOLUTION TP SCH (09:40)
[2019-03-12] MEDS: CEFTRIAXONE 2 GM/50 ML (PMX) 50 ML IVPB SCH (14:39)
[2019-03-12 14:58] VITALS: BP 120/60; PULSE 84
[2019-03-12] MEDS: oxyCODONE 5 MG TAB PO PRN ×2 (15:11→23:01)
[2019-03-12 19:28] VITALS: BP 127/60; PULSE 103; RESP 18
[2019-03-12] MEDS: ENOXAPARIN 40 MG/0.4 ML SYG SC SCH (21:00)
[2019-03-13 02:25] VITALS: BP 135/65; PULSE 106; RESP 18
[2019-03-13] MEDS: oxyCODONE 5 MG TAB PO PRN ×5 (03:11→21:12)
[2019-03-13 07:45] VITALS: BP 100/54; PULSE 90; RESP 18
[2019-03-13] MEDS: FLUTICASONE 0.05% 16 GM NAS SPRAY NASAL SCH (08:04)
[2019-03-13] MEDS: MULTIVITAMINS/MINERALS TAB PO SCH (08:04)
[2019-03-13] MEDS: ZINC SULFATE 220 MG CAP PO SCH (08:04)
[2019-03-13] MEDS: NEOMYC/POLYMYX/BACIT 30 GM OINT TOP SCH ×2 (09:00→21:06)
[2019-03-13] MEDS: BALSAM PERU/CASTOR OIL 60 GM TUBE TOP SCH (09:00)
[2019-03-13] MEDS: DAKINS 0.0125%(1/40) 473 ML SOLUTION TP SCH (09:00)
[2019-03-13] MEDS: CEFTRIAXONE 2 GM/50 ML (PMX) 50 ML IVPB SCH (13:59)
[2019-03-13 14:09] VITALS: BP 104/69; PULSE 88; RESP 18
[2019-03-13 19:33] VITALS: BP 118/60; PULSE 88; RESP 18
[2019-03-13] MEDS: ENOXAPARIN 40 MG/0.4 ML SYG SC SCH (21:11)
[2019-03-14 01:38] VITALS: BP 107/55; PULSE 89; RESP 18
[2019-03-14] MEDS: oxyCODONE 5 MG TAB PO PRN ×4 (02:28→20:22)
[2019-03-14] MEDS: BALSAM PERU/CASTOR OIL 60 GM TUBE TOP SCH (09:00)
[2019-03-14] MEDS: NEOMYC/POLYMYX/BACIT 30 GM OINT TOP SCH ×2 (09:00→20:23)
[2019-03-14] MEDS: DAKINS 0.0125%(1/40) 473 ML SOLUTION TP SCH (09:00)
[2019-03-14] MEDS: FLUTICASONE 0.05% 16 GM NAS SPRAY NASAL SCH (09:00)
[2019-03-14] MEDS: ZINC SULFATE 220 MG CAP PO SCH (10:56)
[2019-03-14] MEDS: MULTIVITAMINS/MINERALS TAB PO SCH (10:56)
[2019-03-14] MEDS: CEFTRIAXONE 2 GM/50 ML (PMX) 50 ML IVPB SCH ×2 (15:00→15:09)
[2019-03-14 19:25] VITALS: BP 129/75; PULSE 104; RESP 18
[2019-03-14] MEDS: ENOXAPARIN 40 MG/0.4 ML SYG SC SCH (20:22)
[2019-03-15 02:06] VITALS: BP 125/65; PULSE 106; RESP 18
[2019-03-15] MEDS: FLUTICASONE 0.05% 16 GM NAS SPRAY NASAL SCH (09:00)
[2019-03-15] MEDS: ZINC SULFATE 220 MG CAP PO SCH (09:12)
[2019-03-15] MEDS: MULTIVITAMINS/MINERALS TAB PO SCH (09:12)
[2019-03-15] MEDS ORDERED: LIDOCAINE 1% (MPF) 5 ML VIAL ONE (09:13)
[2019-03-15] MEDS: NEOMYC/POLYMYX/BACIT 30 GM OINT TOP SCH ×2 (09:13→21:03)
[2019-03-15] MEDS: DAKINS 0.0125%(1/40) 473 ML SOLUTION TP SCH (09:14)
[2019-03-15] MEDS: BALSAM PERU/CASTOR OIL 60 GM TUBE TOP SCH (09:14)
[2019-03-15] MEDS ORDERED: LIDOCAINE 1% (MPF) 5 ML VIAL INJ ONE (10:30)
[2019-03-15] MEDS: oxyCODONE 5 MG TAB PO PRN (13:14)
[2019-03-15] MEDS: CALAMINE/PRAMOXINE LOT 180 ML BTL TOP PRN (13:14)
[2019-03-15] MEDS: CEFTRIAXONE 2 GM/50 ML (PMX) 50 ML IVPB SCH (14:03)
[2019-03-15 19:48] VITALS: BP 126/64; PULSE 122; RESP 18
[2019-03-15] MEDS: ENOXAPARIN 40 MG/0.4 ML SYG SC SCH (21:00)
[2019-03-16 01:46] VITALS: BP 127/75; PULSE 103; RESP 18
[2019-03-16] MEDS: oxyCODONE 5 MG TAB PO PRN (03:17)
[2019-03-16 07:48] VITALS: BP 123/85; PULSE 101; RESP 18
[2019-03-16] MEDS: BALSAM PERU/CASTOR OIL 60 GM TUBE TOP SCH (09:00)
[2019-03-16] MEDS: DAKINS 0.0125%(1/40) 473 ML SOLUTION TP SCH (09:00)
[2019-03-16] MEDS: FLUTICASONE 0.05% 16 GM NAS SPRAY NASAL SCH (09:00)
[2019-03-16] MEDS: MULTIVITAMINS/MINERALS TAB PO SCH (13:00)
[2019-03-16] MEDS: ZINC SULFATE 220 MG CAP PO SCH (13:00)
[2019-03-16] MEDS: CEFTRIAXONE 2 GM/50 ML (PMX) 50 ML IVPB SCH (13:00)
[2019-03-16] MEDS: NEOMYC/POLYMYX/BACIT 30 GM OINT TOP SCH ×2 (13:01→21:00)
[2019-03-16 14:19] VITALS: BP 162/67; PULSE 113; RESP 18
[2019-03-16] MEDS ORDERED: CEFTRIAXONE 2 GM INJ IM ONE (20:30)
[2019-03-16] MEDS: ENOXAPARIN 40 MG/0.4 ML SYG SC SCH (21:00)
[2019-03-16 22:08] VITALS: BP 120/82; PULSE 115; RESP 18
[2019-03-17 02:43] VITALS: BP 103/57; PULSE 104; RESP 16
[2019-03-17] MEDS: oxyCODONE 5 MG TAB PO PRN ×2 (05:43→10:23)
[2019-03-17 07:37] VITALS: BP 139/69; PULSE 107; RESP 20
[2019-03-17] MEDS: BALSAM PERU/CASTOR OIL 60 GM TUBE TOP SCH (09:00)
[2019-03-17] MEDS: NEOMYC/POLYMYX/BACIT 30 GM OINT TOP SCH ×2 (09:00→22:13)
[2019-03-17] MEDS: DAKINS 0.0125%(1/40) 473 ML SOLUTION TP SCH (09:00)
[2019-03-17] MEDS: FLUTICASONE 0.05% 16 GM NAS SPRAY NASAL SCH (09:00)
[2019-03-17] MEDS: ZINC SULFATE 220 MG CAP PO SCH (09:00)
[2019-03-17] MEDS: MULTIVITAMINS/MINERALS TAB PO SCH (09:00)
[2019-03-17 13:40] VITALS: BP 130/67; PULSE 99; RESP 20
[2019-03-17] MEDS: CEFTRIAXONE 2 GM/50 ML (PMX) 50 ML IVPB SCH (14:49)
[2019-03-17 20:00] VITALS: BP 132/86; PULSE 104; RESP 20
[2019-03-17] MEDS: ENOXAPARIN 40 MG/0.4 ML SYG SC SCH (22:11)
[2019-03-18] MEDS: oxyCODONE 5 MG TAB PO PRN ×2 (06:04→16:01)
[2019-03-18 07:43] VITALS: BP 136/84; PULSE 99; RESP 20
[2019-03-18] MEDS: FLUTICASONE 0.05% 16 GM NAS SPRAY NASAL SCH (09:00)
[2019-03-18] MEDS: DAKINS 0.0125%(1/40) 473 ML SOLUTION TP SCH (09:00)
[2019-03-18] MEDS: ZINC SULFATE 220 MG CAP PO SCH (09:00)
[2019-03-18] MEDS: MULTIVITAMINS/MINERALS TAB PO SCH (09:00)
[2019-03-18] MEDS: NEOMYC/POLYMYX/BACIT 30 GM OINT TOP SCH ×2 (09:00→21:25)
[2019-03-18] MEDS: BALSAM PERU/CASTOR OIL 60 GM TUBE TOP SCH (09:00)
[2019-03-18] MEDS: CEFTRIAXONE 2 GM/50 ML (PMX) 50 ML IVPB SCH (12:58)
[2019-03-18 13:29] VITALS: BP 122/64; PULSE 100; RESP 20
[2019-03-18] MEDS: ENOXAPARIN 40 MG/0.4 ML SYG SC SCH (21:00)
[2019-03-18 21:39] VITALS: BP 130/78; PULSE 95; RESP 20
[2019-03-19 02:15] VITALS: BP 126/78; PULSE 102; RESP 20
[2019-03-19 07:31] VITALS: BP 117/64; PULSE 81; RESP 20
[2019-03-19] MEDS: BALSAM PERU/CASTOR OIL 60 GM TUBE TOP SCH (09:00)
[2019-03-19] MEDS: FLUTICASONE 0.05% 16 GM NAS SPRAY NASAL SCH (09:00)
[2019-03-19] MEDS: NEOMYC/POLYMYX/BACIT 30 GM OINT TOP SCH ×2 (09:00→21:00)
[2019-03-19] MEDS: ZINC SULFATE 220 MG CAP PO SCH (09:00)
[2019-03-19] MEDS: MULTIVITAMINS/MINERALS TAB PO SCH (09:00)
[2019-03-19] MEDS: DAKINS 0.0125%(1/40) 473 ML SOLUTION TP SCH (09:00)
[2019-03-19 13:27] VITALS: BP 105/60; PULSE 64; RESP 20
[2019-03-19] MEDS: CEFTRIAXONE 2 GM/50 ML (PMX) 50 ML IVPB SCH (14:15)
[2019-03-19] MEDS: oxyCODONE 5 MG TAB PO PRN ×2 (14:27→18:41)
[2019-03-19 19:34] VITALS: BP 123/65; PULSE 97; RESP 19
[2019-03-19] MEDS: ENOXAPARIN 40 MG/0.4 ML SYG SC SCH (21:00)
[2019-03-20 02:38] VITALS: BP 121/67; PULSE 102; RESP 18
[2019-03-20] MEDS: oxyCODONE 5 MG TAB PO PRN ×3 (03:25→20:08)
[2019-03-20 07:52] VITALS: BP 111/56; PULSE 97; RESP 16
[2019-03-20] MEDS: FLUTICASONE 0.05% 16 GM NAS SPRAY NASAL SCH (08:50)
[2019-03-20] MEDS: ZINC SULFATE 220 MG CAP PO SCH (08:50)
[2019-03-20] MEDS: MULTIVITAMINS/MINERALS TAB PO SCH (08:50)
[2019-03-20] MEDS: NEOMYC/POLYMYX/BACIT 30 GM OINT TOP SCH ×2 (08:51→20:09)
[2019-03-20] MEDS: BALSAM PERU/CASTOR OIL 60 GM TUBE TOP SCH (08:51)
[2019-03-20] MEDS: DAKINS 0.0125%(1/40) 473 ML SOLUTION TP SCH (08:51)
[2019-03-20] MEDS: CEFTRIAXONE 2 GM/50 ML (PMX) 50 ML IVPB SCH (12:11)
[2019-03-20 15:21] VITALS: BP 117/80; PULSE 109; RESP 16
[2019-03-20] MEDS: ENOXAPARIN 40 MG/0.4 ML SYG SC SCH (20:09)
[2019-03-21] MEDS: DAKINS 0.0125%(1/40) 473 ML SOLUTION TP SCH (09:00)
[2019-03-21] MEDS: BALSAM PERU/CASTOR OIL 60 GM TUBE TOP SCH (09:00)
[2019-03-21] MEDS: NEOMYC/POLYMYX/BACIT 30 GM OINT TOP SCH (09:00)
[2019-03-21] MEDS: ZINC SULFATE 220 MG CAP PO SCH (09:00)
[2019-03-21] MEDS: MULTIVITAMINS/MINERALS TAB PO SCH (09:00)
[2019-03-21] MEDS: FLUTICASONE 0.05% 16 GM NAS SPRAY NASAL SCH (09:00)
[2019-03-21 09:01] VITALS: BP 115/78; PULSE 78; RESP 16
[2019-03-21 13:10] VITALS: BP 129/63; PULSE 66; RESP 18
[2019-03-21] MEDS: CEFTRIAXONE 2 GM/50 ML (PMX) 50 ML IVPB SCH (13:50)
== END 2019-03-21 17:25 | disposition home or self-care (01) | DRG 871 ==
LOC: E/R 20:00 → ICU 22:55 → CANRESERV 02-08 01:38 → EDBEDREQSVC 02-08 01:46 → EDBEDREQ 02-08 03:26 → CANRESERV 02-08 05:34 → MS3 02-11 12:00 → 2NE 02-21 22:25
PROVIDERS: ADMIT Family Medicine; ATTEND Internal Medicine
PROC: 30233N1 Transfusion of Nonautologous Red Blood Cells into Peripheral Vein, Percutaneous Approach (ICD-10-PCS; principal; 2019-02-11)
DX: A40.9 Streptococcal sepsis, unspecified (principal); L89.324 Pressure ulcer of left buttock, stage 4; L89.314 Pressure ulcer of right buttock, stage 4; L89.893 Pressure ulcer of other site, stage 3; L89.154 Pressure ulcer of sacral region, stage 4; R65.21 Severe sepsis with septic shock; N39.0 Urinary tract infection, site not specified; E87.1 Hypo-osmolality and hyponatremia; E44.0 Moderate protein-calorie malnutrition; Z68.1 Body mass index [BMI] 19.9 or less, adult; G82.20 Paraplegia, unspecified; M86.9 Osteomyelitis, unspecified; D50.0 Iron deficiency anemia secondary to blood loss (chronic); E87.6 Hypokalemia; F15.90 Other stimulant use, unspecified, uncomplicated; F12.90 Cannabis use, unspecified, uncomplicated; G89.29 Other chronic pain; Z87.828 Personal history of other (healed) physical injury and trauma
CPT/HCPCS: 36415; 36430; 36573; 71045; 72192; 80048; 80053; 80069; 80202; 80307; 81001; 81003; 82728; 82962; 83036; 83540; 83605; 83735; 84100; 84145; 84484; 85025; 85610; 85730; 86592; 86703; 86803; 86850; 86900; 86901; 86920; 87070; 87081; 87086; 87340; 93005; 93306; 96365; 96375; C9113; J0696; J1170; J1650; J1885; J2185; J2270; J2405; J3370; J7030; J7040; P9016; P9047